=== PATIENT | female | born 1940 | race Caucasian/White ===

== ENCOUNTER → 2016-09-11 | Outpatient (CLI) | payer MEDICARE, BC ==
[~2016-09-11] MED LIST: REGADENOSON 0.4 MG/5 ML SYRINGE IV ONE
--- NOTE | 2016-09-11 10:27 | EST ---
DATE OF SERVICE: 09/11/2016 AGE: 75Y SEX: F HT: 5'7" WT: 180 lbs. Protocol Paras: Other: Lexiscan Cardiolite Stage: Dur. of Exercise: *Heart Rate Blood Pressure *Rest: 80 Rest: 156/90 * *Max. Achieved: 124 Maximum BP: 176/89 85% PMHR: 100% PMHR: *METS: INDICATIONS: Abnormal EKG, atrial fibrillation. MEDICATIONS: Metoprolol, warfarin. The test is being done to evaluate the cardiac status. Baseline EKG showed atrial fibrillation with controlled ventricular response. Blood pressure at rest is 156/90 with a pulse rate of 80. A standard dose of Lexiscan was infused. EKGs taken during and after the exercise did not reveal any changes to suggest ischemia. FINAL IMPRESSION: 1. Negative Lexiscan stress test. 2. Report on the nuclear images to be given by the radiologist.
--- NOTE | 2016-09-11 13:13 | NM ---
EXAMINATION TYPE: NM stress lexiscan cardiolite DATE OF EXAM: 09/11/2016 10:47 AM COMPARISON: NONE HISTORY: 75-year-old female septal transmural TECHNIQUE: After the intravenous administration of 10.5 mCi Tc 99m Sestamibi - Cardiolite resting SP ECT images acquired 45 minutes post injection. The patient received 0.4mg Lexiscan, 27.5 mCi Tc 99m Sestamibi - Stress images obtained [address] injection FINDINGS: Review of stress and rest SPECT images demonstrates prominent adjacent GI artifact. There is moderate -sized stress-induced perfusion defect along the mid to apical anterolateral wall and along the mid t o basal septal wall. Gated analysis shows an estimated left ventricular ejection fraction of 41 %. TID is calculated at 0.92, within normal limits. IMPRESSION: 1. Images show areas of reversibility along the mid to apical anterolateral wall and in the mid to ba andreina septal wall. Further clinical and EKG correlation recommended. 2. Diminished LVEF of 41%.
== END | disposition home or self-care (01) ==
LOC: RADNMMAIN 08:25
PROVIDERS: ATTEND Internal Medicine
DX: I21.29 ST elevation (STEMI) myocardial infarction involving other sites (principal)
CPT/HCPCS: 93017; 78452; A9500; J2785

== ENCOUNTER → 2016-11-18 | Outpatient (CLI) | payer MEDICARE, BC ==
[2016-11-18 11:49] LABS: INR 4.3 (<1.1); Prothrombin Time 42.2 sec (9.0-12.0)
[2016-11-18 11:57] LABS: CH 30.3; CHCM 32.7; HCT 38.5 % (34.0-46.0); HDW 2.72; HGB 12.9 gm/dL (11.4-16.0); MCH 31.2 pg (25.0-35.0); MCHC 33.5 g/dL (31.0-37.0); MCV 93.2 fL (80.0-100.0); Mean Platelet Volume 6.7; RBC 4.13 m/uL (3.80-5.40); RDW 12.4 % (11.5-15.5); WBC 7.2 k/uL (3.8-10.6)
[2016-11-18 12:13] LABS: Anion Gap 11 mmol/L; Blood Urea Nitrogen 20 mg/dL (7-17); Carbon Dioxide 30 mmol/L (22-30); Chloride 101 mmol/L (98-107); Non-African American GFR(MDRD) >60 (>60 ml/min/1.73 sqM); Potassium 3.9 mmol/L (3.5-5.1); Sodium 142 mmol/L (137-145)
== END | disposition home or self-care (01) ==
LOC: LABPAT 11:17
PROVIDERS: ATTEND Internal Medicine Interventional Cardiology
DX: Z01.812 Encounter for preprocedural laboratory examination (principal); I25.10 Atherosclerotic heart disease of native coronary artery without angina pectoris; I48.91 Unspecified atrial fibrillation; Z79.01 Long term (current) use of anticoagulants
CPT/HCPCS: 80051; 82565; 84520; 85027; 85610

== ENCOUNTER 2016-11-21 06:11 | Day surgery (SDC) | payer MEDICARE, BC ==
[2016-11-20 09:38] VITALS: BMI 28.1
[~2016-11-21 06:11] MED LIST changes: +ALPRAZolam 0.25 MG TAB PO PRN; +ALPRAZolam 0.5 MG TAB PO PRN; +ASPIRIN 325 MG TAB PO STA; +ATORVASTATIN 80 MG TAB PO STA; -REGADENOSON 0.4 MG/5 ML SYRINGE IV ONE; +SODIUM CHLORIDE 0.9% 1,000 ML in EMPTY BAG 1 BAG IV ONE
[2016-11-21 07:10] VITALS: TEMP 98.2
[2016-11-21 07:12] LABS: Glucose,Whole Blood 95 mg/dL (75-99)
[2016-11-21] MEDS ORDERED: LIDOCAINE 2% INJ 20 MG/ML (20 ML MDV) ONE (07:16)
[2016-11-21] MEDS ORDERED: VERAPAMIL 2.5 MG/ML 2 ML AMP ONE (07:17)
[2016-11-21] MEDS ORDERED: SODIUM CHLORIDE 0.9% 1,000 ML IV ONE (07:19)
[2016-11-21 07:31] LABS: INR 1.4 (<1.1); Prothrombin Time 13.5 sec (9.0-12.0)
[2016-11-21] MEDS ORDERED: HEPARIN SODIUM 1,000 UNIT/ML VIAL ONE (07:34)
[2016-11-21] MEDS ORDERED: diphenhydrAMINE 50 MG/ML 1 ML VIAL ONE (07:34)
[2016-11-21] MEDS ORDERED: fentaNYL (PF) 50 MCG/ML 2 ML AMP ONE (07:34)
[2016-11-21] MEDS ORDERED: fentaNYL (PF) 50 MCG/ML 2 ML AMP IV ONE (07:36)
[2016-11-21] MEDS ORDERED: diphenhydrAMINE 50 MG/ML 1 ML VIAL IVP ONE (07:37)
[2016-11-21] MEDS ORDERED: LIDOCAINE 2% INJ 20 MG/ML SQ ONE (07:40)
[2016-11-21] MEDS ORDERED: VERAPAMIL SYRINGE (5 MG/10 ML) INTRAARTER ONE (07:44)
[2016-11-21] MEDS ORDERED: IOHEXOL 350 MG/ML 100 ML BOTTLE INJ ONE (07:59)
[2016-11-21] MEDS ORDERED: RX INFO: IV CONTRAST WAS GIVEN 1 EACH MISC MISCELLANE PRN (08:15)
[2016-11-21] MEDS ORDERED: SODIUM CHLORIDE 0.9% 1,000 ML IV SCH (08:15)
--- NOTE | 2016-11-21 08:44 | CC ---
DATE OF SERVICE: Mrs. Moore is a 75-year-old female with known history of hypertension, hyperlipidemia and diabetes mellitus, history of atrial fibrillation who has been complaining of progressive symptoms of dyspnea on exertion. She underwent a myocardial perfusion imaging that showed evidence of inducible ischemia as well as an impairment in the left ventricle systolic function. In view of that, recommendation was made regarding cardiac catheterization. The procedure as well as risks and complications were discussed with the patient who is in full understanding and agreement. PROCEDURE: The patient was brought to the medical laboratory technologist in a fasting semi-sedated state after receiving fentanyl with Benadryl and after reaching conscious moderate sedated state. Using Xylocaine anesthesia and Seldinger technique, a 6 Faroese sheath was introduced in the right radial artery. Selective right and left coronary angiography was performed using 5 Faroese, 3-1/2 Bend right and left Federico catheters. Multiple views of the coronary arteries including hemiaxial views were obtained. Following that, a 5 Faroese tight pigtail catheter was introduced in the left ventricle, and a 30-degree GUTIERREZ view of the left ventricle was obtained. Following that, catheter and sheath were removed. Hemostasis was obtained with deployment of a TR band. There was no immediate complication. The patient was returned to the room in stable condition. Of note, the patient received 4500 units of intravenous heparin as well as intra-arterial verapamil. FINDINGS: LEFT MAIN: This is a large-size vessel bifurcating into the left circumflex and left anterior descending artery. Left main coronary artery is without any significant obstructive coronary artery disease. LEFT ANTERIOR DESCENDING ARTERY: This is a large-size vessel tapers down in the distal third giving rise to a large diagonal branch. The left anterior descending artery is calcified, has a 20% to 30% plaque in the mid segment. The rest of the vessel has no high-grade stenosis. LEFT CIRCUMFLEX: This is a nondominant vessel, large in caliber, giving rise to a large obtuse marginal branch, calcified proximally. The left circumflex has mild intimal disease without any evidence of high-grade stenosis. RIGHT CORONARY ARTERY: This is a large dominant vessel, bifurcating distally into PDA and posterolateral segment and branches. Calcified throughout its course. The right coronary artery and its branches have mild intimal disease throughout its course of 20%. LEFT VENTRICULOGRAM: Left ventriculogram was performed in 30-degree GUTIERREZ view and revealed a normal left ventricular size with mild global hypokinesis. The estimated ejection fraction was 50%. There was arrhythmia-induced mitral regurgitation. HEMODYNAMICS: There was no gradient across the aortic valve. The left ventricular end-diastolic pressure was 12 mmHg. CONCLUSION: 1. Mild triple vessel coronary artery disease. 2. Mildly impaired left ventricular systolic function. RECOMMENDATIONS: In view of finding anatomy, recommend to continue medical therapy with aggressive coronary risk modifications that have been initiated. Those findings and recommendations were discussed with the patient and her family who are in full understanding and agreement.
--- NOTE | 2016-11-21 08:47 | LTR ---
November 21, 2016 DIANA TRAMMELL MD RE: Brie Moore Dear Dr. Trammell: I had the opportunity to perform cardiac catheterization on Mrs. Moore at [facility] on the 21 of November and a full copy of the procedure note will be forwarded to you. In brief, she was found to have mild triple vessel coronary artery disease with a mildly impaired left ventricular systolic function. In view of that, I recommended to continue medical therapy with aggressive coronary risk modification initiated and thank you again for allowing me the opportunity to participate in her care. Please feel free to call for any questions. Sincerely yours, MIKE GAVIRIA MD
[2016-11-21] MEDS ORDERED: NON-FORMULARY DRUG (Vitamin B Complex [Vitamin B Complex] 1 EACH) PO SCH (09:00)
[2016-11-21] MEDS ORDERED: NON-FORMULARY DRUG (L.Acidoph,Paracasei, B.Lactis [Probiotic] 1 EACH) PO SCH (09:00)
[2016-11-21] MEDS ORDERED: CHOLECALCIFEROL 1,000 UNIT TAB PO SCH (09:00)
[2016-11-21 13:18] VITALS: BP 158/72
[2016-11-21 16:20] VITALS: PULSE 82; RESP 16
[2016-11-21] MEDS ORDERED: WARFARIN 5 MG TAB PO SCH (18:00)
[2016-11-21] MEDS ORDERED: BENAZEPRIL PO SCH (21:00)
[2016-11-21] MEDS ORDERED: AMLODIPINE BESYLATE PO SCH (21:00)
[2016-11-22] MEDS ORDERED: METOPROLOL SUCCINATE (ER) 50 MG TAB.ER.24H PO SCH (09:00)
[2016-11-22] MEDS ORDERED: ATORVASTATIN 20 MG TAB PO SCH (09:00)
[2016-11-22] MEDS ORDERED: WARFARIN 2.5 MG TAB PO SCH (18:00)
== END 2016-11-21 13:58 | disposition home or self-care (01) ==
LOC: CATHCVL 06:11
PROVIDERS: ATTEND Internal Medicine Interventional Cardiology
DX: I25.10 Atherosclerotic heart disease of native coronary artery without angina pectoris (principal); I10 Essential (primary) hypertension; E78.2 Mixed hyperlipidemia; E11.9 Type 2 diabetes mellitus without complications; I48.2 Chronic atrial fibrillation; Z79.01 Long term (current) use of anticoagulants; Z82.49 Family history of ischemic heart disease and other diseases of the circulatory system; Z88.0 Allergy status to penicillin; Z87.891 Personal history of nicotine dependence; Z79.84 Long term (current) use of oral hypoglycemic drugs; Z79.899 Other long term (current) drug therapy
CPT/HCPCS: 93458; 85610; 99152; 99153; C1894; C1769 ×2; J2001; J1200; Q9967; J3010; J1644

== ENCOUNTER 2017-04-04 10:09 | Inpatient (IN) | payer MEDICARE, BC ==
[2017-04-04] MEDS ORDERED: RX INFO: IV CONTRAST WAS GIVEN 1 EACH MISC MISCELLANE PRN (10:56)
--- NOTE | 2017-04-04 11:08 | ED ---
General Adult HPI - General Chief complaint: GI Bleed Stated complaint: Rectal Bleed 15 HOURS Time Seen by Provider: 04/04/17 10:35 Source: patient, family, RN notes reviewed Mode of arrival: ambulatory Limitations: no limitations - History of Present Illness Initial comments: 76-year-old female with history of atrial fibrillation currently on Coumadin presents with possibly 5 episodes of bright red blood per rectum. Patient also reports crampy lower abdominal pain which is bilateral. She is currently asymptomatic. Last bowel movement was attending him. This was approximately 2- 3 tablespoons with several small blood clots. She does have a history of reported inflammation in her rectum and cold. There is a family history: Cancer. She is up-to-date on her colonoscopies as far she knows, and there has been no known irregularities. Patient denies fever or chills. Denies upper abdominal pain. Denies chest pain or shortness of breath. She is reporting some lightheadedness, worse with standing. Patient is otherwise is symptomatically at this time. - Related Data Home Medications Medication Instructions Recorded Confirmed Cholecalciferol [Vitamin D3] 1,000 unit PO DAILY 10/15/16 04/04/17 Metoprolol Succinate (ER) [Toprol 50 mg PO DAILY 10/15/16 04/04/17 Xl] Warfarin [Coumadin] 2.5 mg PO SUWESA 10/15/16 04/04/17 Warfarin [Coumadin] 5 mg PO MOTUTHFR 10/15/16 04/04/17 amLODIPine BESYLATE/BENAZEPRIL 1 cap PO HS 10/15/16 04/04/17 [Lotrel 10-40 mg Capsule] sitaGLIPtin PHOS/metFORMIN HCL 1 tab PO DAILY 10/15/16 04/04/17 [Janumet 50-500 mg Tablet] L.acidoph,Paracasei, B.lactis 1 cap PO DAILY 11/20/16 04/04/17 [Probiotic] Vitamin B Complex 1 cap PO DAILY 11/20/16 04/04/17 Allergies Allergy/AdvReac Type Severity Reaction Status Date / Time Penicillins Allergy Swelling Verified 04/04/17 12:10 Review of Systems ROS Statement: Those systems with pertinent positive or pertinent negative responses have been documented in the HPI. ROS Other: All systems not noted in ROS Statement are negative. Past Medical History Past Medical History: Cancer, Diabetes Mellitus, Hypertension, Osteoarthritis ( OA) Additional Past Medical History / Comment(s): Pt states that she has been told that she has a-fib but recently told she does not have a-fib. 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 Past Anesthesia/Blood Transfusion Reactions: No Reported Reaction, Motion Sickness Past Psychological History: Depression Smoking Status: Former smoker - Past Family History Brother(s) Family Medical History: Deep Vein Thrombosis (DVT) Mother Family Medical History: Cancer General Exam Limitations: no limitations General appearance: alert, in no apparent distress Head exam: Present: atraumatic, normocephalic Eye exam: Present: normal appearance, PERRL ENT exam: Present: normal exam, mucous membranes moist Neck exam: Present: normal inspection. Absent: tenderness, meningismus Respiratory exam: Present: normal lung sounds bilaterally. Absent: respiratory distress Cardiovascular Exam: Present: regular rate, irregular rhythm GI/Abdominal exam: Present: soft. Absent: distended, tenderness, guarding Rectal exam: Present: normal rectal tone, heme (+) stool Extremities exam: Present: normal inspection, normal capillary refill. Absent: pedal edema Back exam: Present: normal inspection, full ROM Neurological exam: Present: alert, oriented X3, CN II-XII intact. Absent: motor sensory deficit Psychiatric exam: Present: normal affect, normal mood Skin exam: Present: warm, dry. Absent: cyanosis, diaphoretic, pallor Course Vital Signs 04/04/17 04/04/17 04/04/17 10:18 10:32 12:20 Temperature 98.5 F 96.8 F L Pulse Rate 80 76 61 Respiratory 17 20 18 Rate Blood Pressure 124/66 127/80 133/74 O2 Sat by Pulse 96 96 96 Oximetry 04/04/17 13:14 Temperature Pulse Rate 68 Respiratory 18 Rate Blood Pressure 146/81 O2 Sat by Pulse 97 Oximetry EKG Findings - EKG Comments: EKG Findings:: EKG shows atrial fibrillation with ventricular rate of 58, QRS duration 90, QTC 441, this may be atrial flutter, no signs of ischemia Medical Decision Making - Medical Decision Making 76-year-old female presenting with crampy lower abdominal pain and 5 episodes of bright red blood per rectum with some small clots. Patient does have a history of colitis in the past. She is on Coumadin for atrial fibrillation. Vital signs are stable, patient is overall well-appearing. Hemoglobin is 13.6, INR is 3.0. All the labs are unremarkable. CT is obtained and does show colitis of the descending colon, there is also diverticulosis. No signs of diverticulitis. Case discussed with gastroenterology, INR will be reversed with vitamin K. Patient will be admitted to internal medicine. Diagnosis: GI bleed, likely lower, on anticoagulation - Lab Data Result diagrams: 04/04/17 11:16 04/04/17 11:16 Lab Results 04/04/17 04/04/17 04/04/17 Range/Units 11:16 11:16 11:16 WBC 12.4 H (3.8-10.6) k/uL RBC 4.27 (3.80-5.40) m/uL Hgb 13.6 (11.4-16.0) gm/dL Hct 38.2 (34.0-46.0) % MCV 89.5 (80.0-100.0) fL MCH 31.8 (25.0-35.0) pg MCHC 35.5 (31.0-37.0) g/dL RDW 12.4 (11.5-15.5) % Plt Count 241 (150-450) k/uL Neutrophils % 78 % Lymphocytes % 13 % Monocytes % 6 % Eosinophils % 1 % Basophils % 0 % Neutrophils # 9.6 H (1.3-7.7) k/uL Lymphocytes # 1.7 (1.0-4.8) k/uL Monocytes # 0.8 (0-1.0) k/uL Eosinophils # 0.1 (0-0.7) k/uL Basophils # 0.0 (0-0.2) k/uL PT (9.0-12.0) sec INR (<1.2) APTT (22.0-30.0) sec Sodium 139 (137-145) mmol/L Potassium 3.8 (3.5-5.1) mmol/L Chloride 104 (98-107) mmol/L Carbon Dioxide 27 (22-30) mmol/L Anion Gap 8 mmol/L BUN 13 (7-17) mg/dL Creatinine 0.71 (0.52-1.04) mg/dL Est GFR (MDRD) Af Amer >60 (>60 ml/min/1.73 sqM) Est GFR (MDRD) Non-Af >60 (>60 ml/min/1.73 sqM) Glucose 95 (74-99) mg/dL Plasma Lactic Acid Abraham (0.7-2.0) mmol/L Calcium 9.3 (8.4-10.2) mg/dL Magnesium 1.3 L (1.6-2.3) mg/dL Total Bilirubin 1.4 H (0.2-1.3) mg/dL AST 29 (14-36) U/L ALT 35 (9-52) U/L Alkaline Phosphatase 52 (38-126) U/L Total Creatine Kinase 84 (30-135) U/L CK-MB (CK-2) 0.6 (0.0-2.4) ng/mL CK-MB (CK-2) Rel Index 0.7 Total Protein 7.3 (6.3-8.2) g/dL Albumin 3.9 (3.5-5.0) g/dL Urine Color Urine Appearance (Clear) Urine pH (5.0-8.0) Ur Specific [place] (1.001-1.035) Urine Protein (Negative) Urine Glucose (UA) (Negative) Urine Ketones (Negative) Urine Blood (Negative) Urine Nitrite (Negative) Urine Bilirubin (Negative) Urine Urobilinogen (<2.0) mg/dL Ur Leukocyte Esterase (Negative) Blood Type Blood Type Confirm Blood Type Recheck Antibody Screen Spec Expiration Date 04/04/17 04/04/17 04/04/17 Range/Units 11:16 11:16 11:16 WBC (3.8-10.6) k/uL RBC (3.80-5.40) m/uL Hgb (11.4-16.0) gm/dL Hct (34.0-46.0) % MCV (80.0-100.0) fL MCH (25.0-35.0) pg MCHC (31.0-37.0) g/dL RDW (11.5-15.5) % Plt Count (150-450) k/uL Neutrophils % % Lymphocytes % % Monocytes % % Eosinophils % % Basophils % % Neutrophils # (1.3-7.7) k/uL Lymphocytes # (1.0-4.8) k/uL Monocytes # (0-1.0) k/uL Eosinophils # (0-0.7) k/uL Basophils # (0-0.2) k/uL PT 28.8 H (9.0-12.0) sec INR 3.0 H (<1.2) APTT 37.0 H (22.0-30.0) sec Sodium (137-145) mmol/L Potassium (3.5-5.1) mmol/L Chloride (98-107) mmol/L Carbon Dioxide (22-30) mmol/L Anion Gap mmol/L BUN (7-17) mg/dL Creatinine (0.52-1.04) mg/dL Est GFR (MDRD) Af Amer (>60 ml/min/1.73 sqM) Est GFR (MDRD) Non-Af (>60 ml/min/1.73 sqM) Glucose (74-99) mg/dL Plasma Lactic Acid Abraham 0.9 (0.7-2.0) mmol/L Calcium (8.4-10.2) mg/dL Magnesium (1.6-2.3) mg/dL Total Bilirubin (0.2-1.3) mg/dL AST (14-36) U/L ALT (9-52) U/L Alkaline Phosphatase (38-126) U/L Total Creatine Kinase (30-135) U/L CK-MB (CK-2) (0.0-2.4) ng/mL CK-MB (CK-2) Rel Index Total Protein (6.3-8.2) g/dL Albumin (3.5-5.0) g/dL Urine Color Urine Appearance (Clear) Urine pH (5.0-8.0) Ur Specific [place] (1.001-1.035) Urine Protein (Negative) Urine Glucose (UA) (Negative) Urine Ketones (Negative) Urine Blood (Negative) Urine Nitrite (Negative) Urine Bilirubin (Negative) Urine Urobilinogen (<2.0) mg/dL Ur Leukocyte Esterase (Negative) Blood Type A Positive Blood Type Confirm Blood Type Recheck CABO Indicated Antibody Screen NEGATIVE Spec Expiration Date 04/07/2017 - 231504/04/17 04/04/17 Range/Units 12:37 13:05 WBC (3.8-10.6) k/uL RBC (3.80-5.40) m/uL Hgb (11.4-16.0) gm/dL Hct (34.0-46.0) % MCV (80.0-100.0) fL MCH (25.0-35.0) pg MCHC (31.0-37.0) g/dL RDW (11.5-15.5) % Plt Count (150-450) k/uL Neutrophils % % Lymphocytes % % Monocytes % % Eosinophils % % Basophils % % Neutrophils # (1.3-7.7) k/uL Lymphocytes # (1.0-4.8) k/uL Monocytes # (0-1.0) k/uL Eosinophils # (0-0.7) k/uL Basophils # (0-0.2) k/uL PT (9.0-12.0) sec INR (<1.2) APTT (22.0-30.0) sec Sodium (137-145) mmol/L Potassium (3.5-5.1) mmol/L Chloride (98-107) mmol/L Carbon Dioxide (22-30) mmol/L Anion Gap mmol/L BUN (7-17) mg/dL Creatinine (0.52-1.04) mg/dL Est GFR (MDRD) Af Amer (>60 ml/min/1.73 sqM) Est GFR (MDRD) Non-Af (>60 ml/min/1.73 sqM) Glucose (74-99) mg/dL Plasma Lactic Acid Abraham (0.7-2.0) mmol/L Calcium (8.4-10.2) mg/dL Magnesium (1.6-2.3) mg/dL Total Bilirubin (0.2-1.3) mg/dL AST (14-36) U/L ALT (9-52) U/L Alkaline Phosphatase (38-126) U/L Total Creatine Kinase (30-135) U/L CK-MB (CK-2) (0.0-2.4) ng/mL CK-MB (CK-2) Rel Index Total Protein (6.3-8.2) g/dL Albumin (3.5-5.0) g/dL Urine Color Light Yellow Urine Appearance Clear (Clear) Urine pH 7.0 (5.0-8.0) Ur Specific [place] 1.011 (1.001-1.035) Urine Protein Negative (Negative) Urine Glucose (UA) Negative (Negative) Urine Ketones Negative (Negative) Urine Blood Negative (Negative) Urine Nitrite Negative (Negative) Urine Bilirubin Negative (Negative) Urine Urobilinogen <2.0 (<2.0) mg/dL Ur Leukocyte Esterase Negative (Negative) Blood Type Blood Type Confirm A Positive Blood Type Recheck Antibody Screen Spec Expiration Date Disposition Clinical Impression: Hematochezia Disposition: ADMITTED IP TO THIS [facility] Condition: Stable Referrals: Jean Paul Gonzalez MD [Primary Care Provider] - 1-2 days Decision to Admit Reason: Admit from EC Decision Date: 04/04/17 Decision Time: 13:30
[2017-04-04 11:38] LABS: Basophils % (A) 0 %; CHCM 34.8; Eosinophils # (A) 0.1 k/uL (0-0.7); Eosinophils % (A) 1 %; HCT 38.2 % (34.0-46.0); HDW 2.79; HGB 13.6 gm/dL (11.4-16.0); Luc # (Auto) 0.18; Luc % (Auto) 1; Lymphocytes # (A) 1.7 k/uL (1.0-4.8); Lymphocytes % (A) 13 %; MCH 31.8 pg (25.0-35.0); MCHC 35.5 g/dL (31.0-37.0); MCV 89.5 fL (80.0-100.0); Mean Platelet Volume 7.3; Monocytes # (A) 0.8 k/uL (0-1.0); Monocytes % (A) 6 %; Neutrophils # (A) 9.6 k/uL (1.3-7.7); Neutrophils % (A) 78 %; RBC 4.27 m/uL (3.80-5.40); RDW 12.4 % (11.5-15.5); WBC 12.4 k/uL (3.8-10.6)
[2017-04-04 11:48] LABS: Anion Gap 8 mmol/L; Calcium 9.3 mg/dL (8.4-10.2); Carbon Dioxide 27 mmol/L (22-30); Chloride 104 mmol/L (98-107); Glucose 95 mg/dL (74-99); Non-African American GFR(MDRD) >60 (>60 ml/min/1.73 sqM); Prothrombin Time 28.8 sec (9.0-12.0); Sodium 139 mmol/L (137-145); Total Bilirubin 1.4 mg/dL (0.2-1.3); Total Protein 7.3 g/dL (6.3-8.2)
[2017-04-04 11:50] LABS: Potassium 3.8 mmol/L (3.5-5.1)
[2017-04-04 11:51] LABS: ALT 35 U/L (9-52); AST 29 U/L (14-36); Alkaline Phosphatase 52 U/L (38-126); Blood Urea Nitrogen 13 mg/dL (7-17); Magnesium 1.3 mg/dL (1.6-2.3)
[2017-04-04 12:09] LABS: Creatine Kinase MB 0.6 ng/mL (0.0-2.4)
[2017-04-04] MEDS ORDERED: MAGNESIUM SULFATE-D5W PMX 1 GM in DEXTROSE/WATER 1 100ML.BAG IVPB ONE (12:25)
[2017-04-04 13:23] LABS: Appearance,Urine Clear (Clear); Bilirubin,Urine Negative (Negative); Glucose,Urine (UA) Negative (Negative); Ketones,Urine Negative (Negative); Leukocyte Esterase,Urine Negative (Negative); Nitrite,Urine Negative (Negative); Protein,Urine Negative (Negative); Specific Gravity,Urine 1.011 (1.001-1.035); UA Billing (MACRO vs. MICRO) CHEM; Urobilinogen,Urine <2.0 mg/dL (<2.0)
--- NOTE | 2017-04-04 13:40 | CT ---
EXAMINATION TYPE: CT abdomen pelvis w con DATE OF EXAM: 04/04/2017 COMPARISON: NONE INDICATION: Bright red rectal bleeding DLP: 752.90 mGycm, Automated exposure control for dose reduction was used. CONTRAST: 100 mL of Omnipaque 300. Study performed without Oral Contrast TECHNIQUE: Axial images were obtained from above the diaphragm to the pubic rami in the axial plane a t 5 mm thick sections. Reconstructed images are reviewed on the computer in the coronal plane. FINDINGS: Limited CT sections are obtained the lung bases. The lung bases are clear. CT ABDOMEN: Liver: There is a 0.8 cm hypodensity within the anterior superior right lobe liver likely is a cyst. Spleen: Normal Pancreas: Normal Adrenal glands: The adrenal glands are normal. Gallbladder: Normal Kidneys: No masses are evident. No hydronephrosis is present. No cysts are present. Delayed images were obtained through the kidneys, which remain unremarkable. Aorta: Vascular calcification is within the aorta. Inferior vena cava: Normal. CT PELVIS: There are inflammatory changes at the splenic flexure and proximal descending colon compatible with c olitis. This extends to the descending colon sigmoid colon junction. Study is performed without oral contrast limiting the evaluation. Diverticular changes are within the sigmoid colon without acute div erticulitis. Appendix: Normal as visualized. Urinary bladder: Normal. Genitourinary structures: Uterus is not identified. There is a large hypodense structure measuring 4. 9 x 7.6 cm in the left adnexal region measuring 9 Hounsfield units. This could be a large ovarian cys t. Osseous structures: No suspicious lytic or sclerotic lesions. Facet degenerative changes at sacroilia c joint degenerative changes are present. IMPRESSIONS: 1. Correlate for descending colon colitis. 2. Diverticulosis without acute diverticulitis. 3. Large left ovarian cyst. This should be followed with ultrasound to resolution.
[2017-04-04] MEDS ORDERED: PHYTONADIONE 5 MG in SODIUM CHLORIDE 0.9% 50 ML IVPB STA (14:04)
[2017-04-04] MEDS ORDERED: ONDANSETRON 4 MG/2 ML VIAL IVP PRN (14:05)
[2017-04-04] MEDS ORDERED: ACETAMINOPHEN TAB 325 MG TAB PO PRN (14:05)
[2017-04-04] MEDS ORDERED: NALOXONE 0.4 MG/ML 1 ML VIAL IV PRN (14:05)
[2017-04-04] MEDS ORDERED: SODIUM CHLORIDE 0.9% 1,000 ML IV SCH (14:15)
[2017-04-04] MEDS: PANTOPRAZOLE 40 MG/10 ML VIAL IV SCH ×2 (14:51→15:04)
[2017-04-04 16:16] VITALS: BMI 27.6
[2017-04-04 17:39] LABS: Basophils # (A) 0.1 k/uL (0-0.2); Basophils % (A) 0 %; CHCM 34.2; Eosinophils # (A) 0.1 k/uL (0-0.7); Eosinophils % (A) 1 %; HCT 43.4 % (34.0-46.0); HDW 2.64; HGB 14.4 gm/dL (11.4-16.0); Luc # (Auto) 0.18; Luc % (Auto) 2; Lymphocytes # (A) 2.1 k/uL (1.0-4.8); Lymphocytes % (A) 17 %; MCH 31.2 pg (25.0-35.0); MCHC 33.1 g/dL (31.0-37.0); MCV 94.2 fL (80.0-100.0); Mean Platelet Volume 7.6; Monocytes # (A) 0.8 k/uL (0-1.0); Monocytes % (A) 6 %; Neutrophils % (A) 74 %; RBC 4.61 m/uL (3.80-5.40); RDW 12.9 % (11.5-15.5); WBC 12.1 k/uL (3.8-10.6); WBC (Perox) 11.53
[2017-04-04 17:51] LABS: ALT 34 U/L (9-52); AST 26 U/L (14-36); Alkaline Phosphatase 61 U/L (38-126); Anion Gap 9 mmol/L; Blood Urea Nitrogen 10 mg/dL (7-17); Calcium 9.4 mg/dL (8.4-10.2); Carbon Dioxide 28 mmol/L (22-30); Chloride 104 mmol/L (98-107); Glucose 92 mg/dL (74-99); Non-African American GFR(MDRD) >60 (>60 ml/min/1.73 sqM); Sodium 141 mmol/L (137-145); Total Bilirubin 1.7 mg/dL (0.2-1.3); Total Protein 7.7 g/dL (6.3-8.2)
[2017-04-04 18:51] LABS: Bilirubin, Delta 0.5 mg/dL (0.0-0.2)
[2017-04-04] MEDS: POTASSIUM CHLORIDE ER 20 MEQ TAB.ER PO SCH ×3 (19:38→23:15)
[2017-04-04] MEDS ORDERED: diphenhydrAMINE 25 MG CAP PO PRN (19:39)
[2017-04-04] MEDS ORDERED: MD COMMUNICATION TO PHARMACY 1 EACH MISC PO PRN (20:00)
[2017-04-04] MEDS ORDERED: POTASSIUM CHLORIDE 20 MEQ, LIDOCAINE 2% INJ 20 MG in SODIUM CHLORIDE 0.9% 100 ML IVPB SCH (20:00)
[2017-04-04] MEDS ORDERED: Magnesium Replacement Protocol 1 EACH MISC MISCELLANE PRN (20:01)
[2017-04-04] MEDS ORDERED: Potassium Replacement Protocol 1 EACH MISC MISCELLANE PRN (20:02)
--- NOTE | 2017-04-04 20:19 | P.HPIM ---
History of Present Illness H&P Date: 04/04/17 Chief Complaint: bloody diarrhea This 76-year-old female patient presented with a chief complaint of bloody diarrhea. bPatient state that she had not had any recent bowel habit changes in days prior. Normal pattern is formed brown stool every one to two days. Patient states that yesterday afternoon she began to have firm stool, followed by mushy stool that became clear liquid by 6 pm. Beginning at 7 pm she began to have bright red blood per rectum. She denies it being mixed with any stool. She indicates by this morning the blood was clotted and dark. Patient indicates that every 20 minutes or so she has less than a minute of 8/ 10 pain that subsides on its own in her bilateral lower quadrants across her pelvis. Pain subsides back to resolution after that time. This stopped from 2 -6 pm and then restarted. No reported new dietary changes. Not exposed to new foods. Lives with sister who is not ill. Patient states that she had a similar episode 12-15 years ago which she felt had something to do with ingredients in a malt from [employer] and another episode subsequently with the same exposure. She states she did have a colonoscopy at that time and she had significant inflammation but was told it was not ulcerative colitis. No nausea or vomiting. No fever or chills. No appetite loss. No upper abdominal pain. No history of gastric ulcers. No hematemesis. Review of Systems General: Patient denies fever, chills,nausea, or vomiting. HEENT: No visual changes. No eye pain. No nasal symptoms. No dysphagia.No odynophagia. No ENT pain. Remote history of thymoma. Cardiac: No chest pain. No palpitations. Pulmonary: No dyspnea. GI: Left lower quadrant and right lower quadrant abdominal pain in a band over the upper pelvis. Intense every 15 -20 minutes at 8/10, subsides in a minute or so each time. Multiple loose bowel movements. Please see HPI. No constipation prior to the onset of the diarrhea. No melena. Positive hematochezia. See HPI. Some reflux at times. Some solid food dysphagia with processed white bread over the last two years. OK with other foods including chicken, etc. : No dysuria.No hematuria. No hesitancy. No urgency. No renal lithiasis history. Musculoskeletal: No musculoskeletal pain. Orthopedic: No fracture history. Integumentary: Denies rash. Denies pruritis. Neurologic: Denies any lateralizing weakness. Denies numbness. Denies tingling. No seizure activity. Denies TIA or CVA. Endocrine: Positive diabetes. No thyroid disorder history. Heme/Onc: Denies anemia. Denies cancer. Denies adenopathy. Allergic/Immunologic: Allergic to PCN, causing arm to swell after injection at age 11. tolerates cephalosporins. No seasonal allergy or other history given. Past Medical History Past Medical History: Cancer, Diabetes Mellitus, Hypertension, Osteoarthritis ( OA) Additional Past Medical History / Comment(s): Pt states that she has been told that she has a-fib but recently told she does not have a-fib. 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 Past Anesthesia/Blood Transfusion Reactions: No Reported Reaction, Motion Sickness Past Psychological History: Depression Smoking Status: Former smoker Past Alcohol Use History: Occasional Past Drug Use History: None Reported - Past Family History Brother(s) Family Medical History: Deep Vein Thrombosis (DVT) Mother Family Medical History: Cancer Medications and Allergies Home Medications Medication Instructions Recorded Confirmed Type Cholecalciferol [Vitamin D3] 1,000 unit PO DAILY 10/15/16 04/04/17 History Metoprolol Succinate (ER) [Toprol 50 mg PO DAILY 10/15/16 04/04/17 History Xl] Warfarin [Coumadin] 2.5 mg PO SUWESA 10/15/16 04/04/17 History Warfarin [Coumadin] 5 mg PO MOTUTHFR 10/15/16 04/04/17 History amLODIPine BESYLATE/BENAZEPRIL 1 cap PO HS 10/15/16 04/04/17 History [Lotrel 10-40 mg Capsule] sitaGLIPtin PHOS/metFORMIN HCL 1 tab PO DAILY 10/15/16 04/04/17 History [Janumet 50-500 mg Tablet] L.acidoph,Paracasei, B.lactis 1 cap PO DAILY 11/20/16 04/04/17 History [Probiotic] Vitamin B Complex 1 cap PO DAILY 11/20/16 04/04/17 History Acetaminophen/Diphenhydramine 1 tab PO HS PRN 04/04/17 04/04/17 History [Tylenol PM 500-25mg] Allergies Allergy/AdvReac Type Severity Reaction Status Date / Time Penicillins Allergy Swelling Verified 04/04/17 12:10 Physical Exam Osteopathic Statement: *. No significant issues noted on an osteopathic structural exam other than those noted in the History and Physical/Consult. Vitals: Vital Signs Temp Pulse Pulse Resp BP BP Pulse Ox 04/04/17 16:38 98.1 F 60 18 140/70 98 04/04/17 14:56 66 18 152/71 96 04/04/17 14:32 98.5 F 58 L 18 124/81 95 04/04/17 13:14 68 18 146/81 97 04/04/17 12:20 61 18 133/74 96 04/04/17 10:32 96.8 F L 76 20 127/80 96 04/04/17 10:18 98.5 F 80 17 124/66 96 Intake and Output 04/04/17 04/04/17 04/04/17 06:59 14:59 22:59 Other: Weight 82.554 kg Patient Weight 04/05/17 06:59 Weight 82.554 kg General: Patient awake alert and oriented x 3. No acute distress. HEENT: Sclerae are clear. Pupils equal, round and reactive to light bilaterally. No cervical adenopathy. No pharyngeal erythema or exudate. No thyromegaly. Nocarotid bruits. Lymphatic: No anterior cervical adenopathy. Chest: Heart irregular in rate and rhythm, slightly bradycardic positive S1 and S2. No S3. No S4. No clicks, rubs or murmurs. Scar left posterior chest wall from posterior lateral approach to thymoma surgical attempt. Lungs: Clear to auscultation bilaterally. No wheezes rales or rhonchi. Respirations even and nonlabored. Abdomen/GI: Bowel sounds present in all 4 quadrants. Bowel sounds hyperactive. Moves evenly with respiration. Tender over left mid abdomen and left lower quadrant to palpation. No mass. No hepatomegaly or splenomegaly. No bruits. On external rectal exam patient had a few drops of fresh blood and hemorrhoids which are not externally inflamed. Internal rectal exam performed by ER physician reported heme positive and do not wish to further exacerbate bleeding. Patient indicates that rectal exam itself was not tender, pain further interior. Musculoskeletal/ Extremities: No tenderness on muscular exam. No ecchymosis. Vascular: Radial pulses equal. 2/4. DP pulses 2/4. Skin: No rash. Neurologic: Awake, alert and oriented times 3. No lateralizing deficits noted on gross inspection. Ortho: no acute joint swelling or tenderness. Psychiatric: Despite severe life stressors with multiple losses in recent years and loss of her brother in the last week, patient in good spirits with a positive attitude. Results CBC & Chem 7: 04/05/17 04:53 04/05/17 11:35 Labs: Abnormal Lab Results - Last 24 Hours (Table) 04/04/17 04/04/17 04/04/17 Range/Units 11:16 11:16 11:16 WBC 12.4 H (3.8-10.6) k/uL Neutrophils # 9.6 H (1.3-7.7) k/uL PT 28.8 H (9.0-12.0) sec INR 3.0 H (<1.2) APTT 37.0 H (22.0-30.0) sec Potassium (3.5-5.1) mmol/L Magnesium 1.3 L (1.6-2.3) mg/dL Total Bilirubin 1.4 H (0.2-1.3) mg/dL Unconjugated Bilirubin (0.0-1.1) mg/dL Delta Bilirubin (0.0-0.2) mg/dL 04/04/17 04/04/17 Range/Units 17:20 17:20 WBC 12.1 H (3.8-10.6) k/uL Neutrophils # 9.0 H (1.3-7.7) k/uL PT (9.0-12.0) sec INR (<1.2) APTT (22.0-30.0) sec Potassium 3.0 L* (3.5-5.1) mmol/L Magnesium (1.6-2.3) mg/dL Total Bilirubin 1.7 H (0.2-1.3) mg/dL Unconjugated Bilirubin 1.2 H (0.0-1.1) mg/dL Delta Bilirubin 0.5 H (0.0-0.2) mg/dL Thrombosis Risk Factor Assmnt - DVT/VTE Prophylaxis DVT/VTE Prophylaxis: Mechanical Prophylaxis ordered - Choose All That Apply Each Risk Factor Represents 3 Points: Age 75 years or older Thrombosis Risk Factor Assessment Total Risk Factor Score: 3 Thrombosis Risk Factor Assessment Level: Moderate Risk Assessment and Plan (1) Colitis Narrative/Plan: Infectious versus ischemic versus other Status: Acute (2) Hematochezia Narrative/Plan: Secondary to #1. Exacerbated by coagulopathy from Coumadin therapy Status: Acute (3) Atrial fibrillation with slow ventricular response Narrative/Plan: Chronic Status: Chronic (4) Hypertension Narrative/Plan: Chronic Status: Chronic (5) Thymoma, malignant Narrative/Plan: By history in the past diagnosed 1990 Status: Resolved (6) History of tonsillectomy Status: Resolved (7) H/O hysterectomy with oophorectomy Narrative/Plan: Unilateral nephrectomy, prior tube and ovary had ruptured from tubal . Status: Resolved (8) Hypokalemia Status: Acute (9) Hypomagnesemia Status: Acute (10) Hyperbilirubinemia Narrative/Plan: Mild Status: Acute Plan: 1. GI has been consulted and has placed the patient on clear liquids. Await GI evaluation. 2. Antibiotics including Kefzol and Flagyl pending further workup with colitis and with cyst being called in the pelvis as well but with patient history of absence of the ovaries feel it is less likely to be an ovarian cyst and as not certain that it couldn't be related to the colitis process with possibly an abscess will treat as same pending further workup. Patient's penicillin ALLERGY noted but she states she has taken Keflex in the past without difficulty. 3. Await direct bilirubin. 4. Magnesium replaced in the ER. Will redraw. Will place patient on magnesium protocol in case low again on redraw overnight. 5. Potassium redraw along with repeat CBC at 2300, spoke with nursing may move this draw by an hour to accommodate the end of the potassium piggybacks. 6. Potassium added to IV fluids and will follow potassium level. 7. Appropriate home medications for hypertension restarted including patient's beta stefan and ADITI inhibitor and calcium channel stefan. 8. Will hold metformin with patient's acute state because of risk of acidosis. Will reevaluate during hospitalization. 9. Patient already on a proton pump inhibitor from ER and ER consultation with Dr. Ros Franco. 10. Patient requesting Tylenol PM. We do not carry this product but have ordered 25 of Benadryl at bedtime per patient request. Patient states she has been on this for years, often gets up in the night on this medication and has not had any problems. Educated patient regarding fall risk. She still would like to take the Benadryl. 11. FULL CODE STATUS 12. DVT prophylaxis with SCDs; patient also ambulating to the bathroom.
[2017-04-04] MEDS: amLODIPine 10 MG TAB PO SCH (20:40)
[2017-04-04] MEDS: LISINOPRIL 20 MG TAB PO SCH (20:40)
[2017-04-04] MEDS: ceFAZolin 2 GM in SODIUM CHLORIDE 0.9% 100 ML IVPB SCH (21:25)
[2017-04-04 22:54] LABS: HCT 38.3 % (34.0-46.0); HDW 2.63; HGB 12.3 gm/dL (11.4-16.0); MCH 30.4 pg (25.0-35.0); MCHC 32.1 g/dL (31.0-37.0); MCV 94.4 fL (80.0-100.0); Mean Platelet Volume 7.7; RBC 4.06 m/uL (3.80-5.40); RDW 12.8 % (11.5-15.5); WBC 14.5 k/uL (3.8-10.6)
[2017-04-04] MEDS: metroNIDAZOLE-NS PMX 500 MG in SALINE 1 100ML.BAG IVPB SCH (23:14)
[2017-04-04 23:15] LABS: Magnesium 1.5 mg/dL (1.6-2.3); Potassium 3.1 mmol/L (3.5-5.1)
[2017-04-04] MEDS: MELATONIN 5 MG TABLET PO SCH (23:15)
[2017-04-05] MEDS ORDERED: SODIUM CHLORIDE 0.9% 1,000 ML with POTASSIUM CHLORIDE 20 MEQ IV SCH ×2 (00:15)
[2017-04-05] MEDS: MAGNESIUM SULFATE-D5W PMX 1 GM in DEXTROSE/WATER 1 100ML.BAG IVPB SCH ×2 (01:20→03:09)
[2017-04-05] MEDS: 0.9% NACL WITH KCL 20 MEQ/L 1,000 ML IV SCH ×2 (01:20→20:35)
[2017-04-05 05:07] LABS: Basophils # (A) 0.1 k/uL (0-0.2); Basophils % (A) 0 %; CH 32.1; CHCM 34.4; Eosinophils # (A) 0.1 k/uL (0-0.7); Eosinophils % (A) 1 %; HCT 36.6 % (34.0-46.0); HDW 2.65; HGB 12.2 gm/dL (11.4-16.0); Luc # (Auto) 0.21; Luc % (Auto) 2; Lymphocytes # (A) 2.1 k/uL (1.0-4.8); Lymphocytes % (A) 18 %; MCH 31.2 pg (25.0-35.0); MCHC 33.4 g/dL (31.0-37.0); MCV 93.5 fL (80.0-100.0); Mean Platelet Volume 7.9; Monocytes # (A) 0.7 k/uL (0-1.0); Monocytes % (A) 6 %; Neutrophils # (A) 8.7 k/uL (1.3-7.7); Neutrophils % (A) 73 %; RBC 3.92 m/uL (3.80-5.40); RDW 13.1 % (11.5-15.5); WBC 11.9 k/uL (3.8-10.6); WBC (Perox) 12.87
[2017-04-05 05:14] LABS: INR 1.4 (<1.2); Partial Thromboplastin Time 28.5 sec (22.0-30.0)
[2017-04-05 05:21] LABS: ALT 30 U/L (9-52); AST 23 U/L (14-36); Alkaline Phosphatase 55 U/L (38-126); Anion Gap 8 mmol/L; Blood Urea Nitrogen 8 mg/dL (7-17); Calcium 8.8 mg/dL (8.4-10.2); Carbon Dioxide 25 mmol/L (22-30); Chloride 106 mmol/L (98-107); Glucose 99 mg/dL (74-99); Magnesium 2.1 mg/dL (1.6-2.3); Non-African American GFR(MDRD) >60 (>60 ml/min/1.73 sqM); Potassium 3.2 mmol/L (3.5-5.1); Sodium 139 mmol/L (137-145); Total Bilirubin 1.5 mg/dL (0.2-1.3); Total Protein 6.3 g/dL (6.3-8.2)
[2017-04-05] MEDS: metroNIDAZOLE-NS PMX 500 MG in SALINE 1 100ML.BAG IVPB SCH ×3 (05:28→20:35)
[2017-04-05 06:02] LABS: Glucose,Whole Blood 102 mg/dL (75-99)
[2017-04-05] MEDS: ceFAZolin 2 GM in SODIUM CHLORIDE 0.9% 100 ML IVPB SCH ×3 (06:36→21:33)
[2017-04-05] MEDS: METOPROLOL SUCCINATE (ER) 50 MG TAB.ER.24H PO SCH (08:20)
[2017-04-05] MEDS: CHOLECALCIFEROL 1,000 UNIT TAB PO SCH (08:20)
[2017-04-05] MEDS: PANTOPRAZOLE 40 MG/10 ML VIAL IV SCH (08:20)
[2017-04-05] MEDS: LINAGLIPTIN 5 MG TABLET PO SCH (08:20)
[2017-04-05] MEDS: POTASSIUM CHLORIDE ER 20 MEQ TAB.ER PO SCH ×2 (08:20→09:38)
[2017-04-05] MEDS: B COMPLEX-VIT C-VIT E-ZINC 1 EACH TAB PO SCH (08:20)
[2017-04-05] MEDS: LACTOBACILLUS ACIDOPH & BULGAR 1 EACH PACKET PO SCH (08:20)
[2017-04-05 11:47] LABS: Glucose,Whole Blood 98 mg/dL (75-99)
[2017-04-05 12:04] LABS: Anion Gap 7 mmol/L; Blood Urea Nitrogen 9 mg/dL (7-17); Calcium 8.8 mg/dL (8.4-10.2); Carbon Dioxide 26 mmol/L (22-30); Chloride 106 mmol/L (98-107); Glucose 87 mg/dL (74-99); Non-African American GFR(MDRD) >60 (>60 ml/min/1.73 sqM); Potassium 3.9 mmol/L (3.5-5.1); Sodium 139 mmol/L (137-145)
[2017-04-05] MEDS ORDERED: PHYTONADIONE ORAL 5 MG/5 ML ORAL.SYRG PO STA (15:02)
--- NOTE | 2017-04-05 15:25 | CONS ---
DATE OF SERVICE: 04/05/2017 REQUESTING PHYSICIAN: Dr. Gonzalez. REASON FOR CONSULTATION: Dr. Gonzalez. REASON FOR CONSULTATION: Abdominal pain and lower GI bleeding. HISTORY OF PRESENT ILLNESS: The patient is a 76-year-old pleasant white female who came into the emergency room complaining of lower abdominal pain since Thursday evening. She started having severe cramping in the lower abdominal area , most in the left lower quadrant area subsequently followed by some diarrhea and then she had multiple episodes of bright colored blood per rectum. She had at least 4 or 5 of these episodes all through Thursday night. Came to the emergency room yesterday and subsequently admitted to the hospital for further evaluation. She did have a CT of the abdomen and pelvis done in the emergency room that showed thickening of the descending colon consistent with colitis. Her last bowel movement was yesterday afternoon around noon and this morning at 7:00 she had another small bowel movement with a small amount of blood in the stool. The abdominal pain has significantly improved. She denies any nausea or vomiting. She reports not fever, chills or night sweats. Never had similar symptoms in the past. Her last colonoscopy done by Dr. Perkins was approximately 4 or 5 years ago and according to the patient, had colon polyps. She denies any recent travel history. No recent antibiotic use. PAST MEDICAL HISTORY: Significant for hypertension, hypercholesterolemia, A. fib on Coumadin. MEDICATIONS AT H OME: Vitamin D3, Toprol, Coumadin, benezapril, Janumet, probiotic and vitamin B complex. ALLERGIES: None. SOCIAL HISTORY: No smoking or alcohol use. PAST SURGICAL HISTORY: Tonsillectomy, hysterectomy, colonoscopy 4 or 5 years ago. FAMILY HISTORY: Brother had DVT and mother had some kind of cancer. PHYSICAL EXAMINATION: She appears comfortable, no apparent distress. VITAL SIGNS: Stable. Blood pressure is ( )/71, pulse rate 75, temperature 99. HEENT: Unremarkable. Mucosa pink. Sclerae anicteric. Oral cavity - no lesions. No JVD or lymph node enlargement. CHEST: Clear to auscultation. HEART: Regular rate and rhythm. ABDOMEN: Soft. Bowel sounds are positive. Mild tenderness in the left lower quadrant area. EXTREMITIES: No pedal edema. SKIN: No rashes. NEURO: Alert and oriented x3. No focal deficits. LABS: At the time of admission to the hospital the WBC was 12.1, hemoglobin 14.4, platelets normal. Today, WBC 11.9, hemoglobin 12.2 and platelets are normal. PT and INR are 14/1.4. INR yesterday was 3. Basic metabolic panel is within normal limits. IMPRESSION: This is a lady who presented with acute onset of lower abdominal pain followed by bloody diarrhea in the last 24 hours duration. She had several episodes of bright red blood per rectum with small clots. A CAT scan showed left-sided colitis. Her clinical picture is very consistent with ischemic colitis but possibility of infectious colitis cannot be excluded. The patient has been empirically started on antibiotics with Flagyl and cefazolin and clinically her symptoms are clinically improved. RECOMMENDATIONS: 1. Continue with clear liquid diet. 2. Repeat CBC in the morning. 3. Hold Coumadin. 4. If her bleeding completely stops she can be discharged home tomorrow and the plan is to perform an outpatient colonoscopy in 2-3 weeks. The plan was discussed with the patient, she is agreeable to it. Thank you for this consultation. MANDO
[2017-04-05 15:31] LABS: CHCM 33.9; HCT 40.3 % (34.0-46.0); HDW 2.65; HGB 13.5 gm/dL (11.4-16.0); MCH 31.7 pg (25.0-35.0); MCHC 33.4 g/dL (31.0-37.0); MCV 94.7 fL (80.0-100.0); Mean Platelet Volume 7.7; RBC 4.25 m/uL (3.80-5.40)
[2017-04-05 15:41] LABS: Magnesium 1.8 mg/dL (1.6-2.3); Potassium 3.8 mmol/L (3.5-5.1)
[2017-04-05 16:29] LABS: Glucose,Whole Blood 100 mg/dL (75-99)
--- NOTE | 2017-04-05 17:36 | P.PN ---
Subjective Principal diagnosis: GI bleed This 76-year-old female patient presented with a chief complaint of bloody diarrhea. See H&P. Patient states she had a an episode of formed stool today along with blood. She states she felt a little bit better is if this was part of what was causing some of her pain. However she still does have pain with palpation today. She states however it is not as acutely painful as it was prior to passing this bowel movement. She states it was previously painful even to light touch of the abdomen. Patient states she's had 2 other episodes of passing a small amount of clots. No nausea or vomiting. No fever or chills. No appetite loss. No upper abdominal pain. No history of gastric ulcers. No hematemesis. Objective - Vital Signs Vital signs: Vital Signs Temp 98.8 F 04/05/17 08:00 Pulse 82 04/05/17 11:08 Resp 16 04/05/17 11:08 BP 132/69 04/05/17 08:00 Pulse Ox 96 04/05/17 08:00 Intake & Output 04/04/17 04/05/17 04/05/17 18:59 06:59 18:59 Intake Total 910 Output Total 250 Balance 660 Weight 82.554 kg 83.6 kg Intake: Intake, IV Titration 350 Amount Sodium Chloride 0.9% 1, 150 000 ml @ 75 mls/hr IV . [id number] AMARI with Potassium Chloride 20 meq Rx#:[id number] ceFAZolin 2 gm In Sodium 100 Chloride 0.9% 100 ml @ 100 mls/hr IVPB Q8H AMARI Rx#:[id number] metroNIDAZOLE-NS PMX 500 100 mg In Saline 1 100ml.bag @ 100 mls/hr IVPB Q8H AMARI Rx#:[id number] Oral 560 Output: Urine 250 Other: Voiding Method Toilet Toilet # Voids 1 1 - Exam General: Patient awake alert and oriented x 3. No acute distress. HEENT: Sclerae are clear. Pupils equal, round and reactive to light bilaterally. No cervical adenopathy. No pharyngeal erythema or exudate. No thyromegaly. Lymphatic: No anterior cervical adenopathy. Chest: Heart regular rhythm, bradycardic in 60s on exam, positive S1 and S2. No S3. No S4. No clicks, rubs or murmurs. Lungs: Clear to auscultation bilaterally. No wheezes rales or rhonchi. Respirations even and nonlabored. Abdomen/GI: Bowel sounds present in all 4 quadrants. Bowel sounds hypoactive but present. Still significant tenderness over the left abdomen with fairly light and deep palpation from splenic region to pelvis. Some tenderness to deep palpation over pelvis on right as well. No mass palpated. No hepatomegaly or splenomegaly. No bruits. Musculoskeletal/ Extremities: No tenderness on muscular exam. No ecchymosis. No edema. Vascular: Radial pulses equal. 2/4. Feet warm. Skin: No rash. Neurologic: Awake, alert and oriented times 3. No lateralizing deficits noted on gross inspection. Psychiatric: In good spirits despite stressors. - Labs CBC & Chem 7: 04/06/17 05:48 04/05/17 15:15 Labs: Abnormal Lab Results - Last 24 Hours (Table) 04/04/17 04/04/17 04/04/17 Range/Units 17:20 17:20 22:36 WBC 12.1 H 14.5 H (3.8-10.6) k/uL Neutrophils # 9.0 H (1.3-7.7) k/uL PT (9.0-12.0) sec INR (<1.2) Potassium 3.0 L* (3.5-5.1) mmol/L POC Glucose (mg/dL) (75-99) mg/dL Magnesium (1.6-2.3) mg/dL Total Bilirubin 1.7 H (0.2-1.3) mg/dL Unconjugated Bilirubin 1.2 H (0.0-1.1) mg/dL Delta Bilirubin 0.5 H (0.0-0.2) mg/dL Albumin (3.5-5.0) g/dL 04/04/17 04/05/17 04/05/17 Range/Units 22:36 04:53 04:53 WBC 11.9 H (3.8-10.6) k/uL Neutrophils # 8.7 H (1.3-7.7) k/uL PT (9.0-12.0) sec INR (<1.2) Potassium 3.1 L 3.2 L (3.5-5.1) mmol/L POC Glucose (mg/dL) (75-99) mg/dL Magnesium 1.5 L (1.6-2.3) mg/dL Total Bilirubin 1.5 H (0.2-1.3) mg/dL Unconjugated Bilirubin (0.0-1.1) mg/dL Delta Bilirubin (0.0-0.2) mg/dL Albumin 3.4 L (3.5-5.0) g/dL 04/05/17 04/05/17 Range/Units 04:53 05:59 WBC (3.8-10.6) k/uL Neutrophils # (1.3-7.7) k/uL PT 14.0 H (9.0-12.0) sec INR 1.4 H (<1.2) Potassium (3.5-5.1) mmol/L POC Glucose (mg/dL) 102 H (75-99) mg/dL Magnesium (1.6-2.3) mg/dL Total Bilirubin (0.2-1.3) mg/dL Unconjugated Bilirubin (0.0-1.1) mg/dL Delta Bilirubin (0.0-0.2) mg/dL Albumin (3.5-5.0) g/dL Assessment and Plan (1) Colitis Narrative/Plan: Infectious versus ischemic, ischemic favored Status: Acute (2) Hematochezia Narrative/Plan: Secondary to #1. Exacerbated by coagulopathy from Coumadin therapy Status: Acute (3) Atrial fibrillation with slow ventricular response Narrative/Plan: Chronic Status: Chronic (4) Hypertension Narrative/Plan: Chronic Status: Chronic (5) Thymoma, malignant Narrative/Plan: By history in the past 1990 Status: Resolved (6) History of tonsillectomy Status: Resolved (7) H/O hysterectomy with oophorectomy Narrative/Plan: Unilateral oophorectomy, prior tube and ovary had ruptured from tubal . Status: Resolved (8) Hypokalemia Status: Acute (9) Hypomagnesemia Status: Acute (10) Hyperbilirubinemia Narrative/Plan: Mild Status: Acute Plan: 1. GI has been consulted and has placed the patient on clear liquids. Recommend to continue the patient on clear liquids. 2. Antibiotics including Kefzol and Flagyl pending further recommendations. Films reviewed with the radiologist Dr. Trejo regarding the cyst on the films. This does appear to be a simple cyst originating from prior ovarian tissue versus other tissue in that region. It does not show any signs of an abscess the wall was not thickened there are no air-fluid levels with colitis and with cyst being called in the pelvis. The cyst will need to be followed up as an outpatient. The patient's liver cyst should be followed up as well. 3. Repeat bilirubin in a.m. 4. Repeat electrolytes ordered as well as repeat CBC. Hemoglobin has been fairly stable despite some continued bleeding. 5. Appropriate home medications for hypertension continued including patient's beta stefan and ADITI inhibitor and calcium channel stefan. 6. Will hold metformin with patient's acute state because of risk of acidosis. Will reevaluate on discharge. 7. Patient already on a proton pump inhibitor from ER and ER consultation with Dr. Ros Franco. 8. Additional dose of oral vitamin K as INR still elevated and patient still having some bleeding. 9. DVT prophylaxis with SCDs; patient also ambulating to the bathroom. 10. GI recommendations appreciated. Patient to remain on clear liquids at this time. If her bleeding continues to decrease and patient remains stable she could possibly be discharged per GI and follow-up as an outpatient in 2-3 weeks for a colonoscopy. Please see GI note. We'll see how the patient does overnight and labs progress.
[2017-04-05] MEDS: amLODIPine 10 MG TAB PO SCH (20:35)
[2017-04-05] MEDS: LISINOPRIL 20 MG TAB PO SCH (20:35)
[2017-04-05 20:53] LABS: Glucose,Whole Blood 92 mg/dL (75-99)
[2017-04-05] MEDS: MELATONIN 5 MG TABLET PO SCH (23:05)
[2017-04-06] MEDS: 0.9% NACL WITH KCL 20 MEQ/L 1,000 ML IV SCH (05:01)
[2017-04-06] MEDS: metroNIDAZOLE-NS PMX 500 MG in SALINE 1 100ML.BAG IVPB SCH ×2 (05:03→12:41)
[2017-04-06 05:49] LABS: Glucose,Whole Blood 87 mg/dL (75-99)
[2017-04-06] MEDS: ceFAZolin 2 GM in SODIUM CHLORIDE 0.9% 100 ML IVPB SCH (06:06)
[2017-04-06 06:47] LABS: CH 32.1; CHCM 33.9; HCT 37.2 % (34.0-46.0); HDW 2.64; HGB 12.2 gm/dL (11.4-16.0); MCH 31.3 pg (25.0-35.0); MCHC 32.8 g/dL (31.0-37.0); MCV 95.3 fL (80.0-100.0); Mean Platelet Volume 7.8; RDW 13.2 % (11.5-15.5); WBC 12.4 k/uL (3.8-10.6)
[2017-04-06] MEDS: B COMPLEX-VIT C-VIT E-ZINC 1 EACH TAB PO SCH (09:10)
[2017-04-06] MEDS: METOPROLOL SUCCINATE (ER) 50 MG TAB.ER.24H PO SCH (09:10)
[2017-04-06] MEDS: LACTOBACILLUS ACIDOPH & BULGAR 1 EACH PACKET PO SCH (09:11)
[2017-04-06] MEDS: PANTOPRAZOLE 40 MG/10 ML VIAL IV SCH (09:11)
[2017-04-06] MEDS: CHOLECALCIFEROL 1,000 UNIT TAB PO SCH (09:11)
[2017-04-06] MEDS: LINAGLIPTIN 5 MG TABLET PO SCH (09:11)
[2017-04-06 09:37] VITALS: BP 125/79; PULSE 74; RESP 18; TEMP 97
[2017-04-06 11:44] LABS: Glucose,Whole Blood 82 mg/dL (75-99)
--- NOTE | 2017-04-07 13:19 | P.DS ---
Providers Date of admission: 04/04/17 14:05 Expected date of discharge: 04/06/17 Attending physician: Faraz Hawkins Consults: 04/04/17 14:06 Consult Physician Urgent Consulting Provider: Claudia Franco Consult Reason/Comments: GI bleed Do you want consulting provider notified?: Yes, Notify in am Primary care physician: Jean Paul Gonzalez [facility] Course: This 76-year-old female patient presented with a chief complaint of bloody diarrhea. bPatient state that she had not had any recent bowel habit changes in days prior. Normal pattern is formed brown stool every one to two days. Patient states that yesterday afternoon she began to have firm stool, followed by mushy stool that became clear liquid by 6 pm. Beginning at 7 pm she began to have bright red blood per rectum. She denies it being mixed with any stool. She indicates by this morning the blood was clotted and dark. Patient indicates that every 20 minutes or so she has less than a minute of 8/ 10 pain that subsides on its own in her bilateral lower quadrants across her pelvis. Pain subsides back to resolution after that time. This stopped from 2 -6 pm and then restarted. No reported new dietary changes. Not exposed to new foods. Lives with sister who is not ill. Patient states that she had a similar episode 12-15 years ago which she felt had something to do with ingredients in a malt from [employer] and another episode subsequently with the same exposure. She states she did have a colonoscopy at that time and she had significant inflammation but was told it was not ulcerative colitis. No nausea or vomiting. No fever or chills. No appetite loss. No upper abdominal pain. No history of gastric ulcers. No hematemesis. 04/06: Patient is currently tolerating clear liquid diet which she states she is sick of and would like to have oatmeal and yogurt which will be arranged prior to her discharge. She denies any epigastric tenderness. She does have left lower quadrant tenderness which is mild and improving. She remains off Coumadin. Plan is for outpatient scope done in 2-[address] Douglass. Hemoglobin today is at 12.2. Discharge diagnoses: (1) Colitis, acute (2) Hematochezia, exacerbated by coagulopathy from Coumadin therapy (3) Atrial fibrillation with slow ventricular response, chronic atrial fibrillation (4) Hypertension (5) Thymoma, malignant, history, diagnosed in 1990 (6) History of tonsillectomy (7) H/O hysterectomy with oophorectomy with possible ovarian cyst to be further evaluated as an outpatient (8) Hypokalemia (9) Hypomagnesemia (10) Hyperbilirubinemia Discharge plan: Home Impression and plan of care have been directed as dictated by the signing physician. Bridget Aiken nurse practitioner acting as scribe for signing physician. Patient Condition at Discharge: Good Plan - Discharge Summary New Discharge Prescriptions: New Melatonin 5 mg PO HS tab metroNIDAZOLE [Flagyl] 500 mg PO Q8HR #30 tab Continue amLODIPine BESYLATE/BENAZEPRIL [Lotrel 10-40 mg Capsule] 1 cap PO HS Metoprolol Succinate (ER) [Toprol XL] 50 mg PO DAILY Cholecalciferol [Vitamin D3] 1,000 unit PO DAILY sitaGLIPtin PHOS/metFORMIN HCL [Janumet 50-500 mg Tablet] 1 tab PO DAILY Vitamin B Complex 1 cap PO DAILY L.acidoph,Paracasei, B.lactis [Probiotic] 1 cap PO DAILY Acetaminophen/Diphenhydramine [Tylenol PM 500-25mg] 1 tab PO HS PRN PRN Reason: Insomnia Discontinued Warfarin [Coumadin] 5 mg PO MOTUTHFR Warfarin [Coumadin] 2.5 mg PO SUWESA Discharge Medication List Cholecalciferol [Vitamin D3] 1,000 unit PO DAILY 10/15/16 [History] Metoprolol Succinate (ER) [Toprol XL] 50 mg PO DAILY 10/15/16 [History] amLODIPine BESYLATE/BENAZEPRIL [Lotrel 10-40 mg Capsule] 1 cap PO HS 10/15/16 [ History] sitaGLIPtin PHOS/metFORMIN HCL [Janumet 50-500 mg Tablet] 1 tab PO DAILY [History] L.acidoph,Paracasei, B.lactis [Probiotic] 1 cap PO DAILY 11/20/16 [History] Vitamin B Complex 1 cap PO DAILY 11/20/16 [History] Acetaminophen/Diphenhydramine [Tylenol PM 500-25mg] 1 tab PO HS PRN 04/04/17 [ History] Melatonin 5 mg PO HS tab 04/06/17 [Rx] metroNIDAZOLE [Flagyl] 500 mg PO Q8HR #30 tab 04/06/17 [Rx] Follow up Appointment(s)/Referral(s): Jean Paul Gonzalez MD [Primary Care Provider] - 1 Week Claudia Franco MD [STAFF PHYSICIAN] - 1 Week Patient Instructions/Handouts: Gastrointestinal Bleeding (DC) Activity/Diet/Wound Care/Special Instructions: Soft diet, no nuts, berries. Discharge Disposition: HOME SELF-CARE
== END 2017-04-06 14:51 | disposition home or self-care (01) | DRG 387 ==
LOC: EC 10:09 → 6SEL 14:05
PROVIDERS: ADMIT Internal Medicine Geriatric Medicine; ATTEND Internal Medicine Geriatric Medicine
DX: K51.511 Left sided colitis with rectal bleeding (principal); E83.42 Hypomagnesemia; I48.2 Chronic atrial fibrillation; K76.89 Other specified diseases of liver; E11.9 Type 2 diabetes mellitus without complications; E87.6 Hypokalemia; I10 Essential (primary) hypertension; T45.515A Adverse effect of anticoagulants, initial encounter; E78.00 Pure hypercholesterolemia, unspecified; N83.202 Unspecified ovarian cyst, left side; K57.30 Diverticulosis of large intestine without perforation or abscess without bleeding; R42 Dizziness and giddiness; E80.6 Other disorders of bilirubin metabolism; M19.90 Unspecified osteoarthritis, unspecified site; Z80.9 Family history of malignant neoplasm, unspecified; Z82.49 Family history of ischemic heart disease and other diseases of the circulatory system; Z86.79 Personal history of other diseases of the circulatory system; Z92.3 Personal history of irradiation; Z88.0 Allergy status to penicillin; Z90.710 Acquired absence of both cervix and uterus; Z79.01 Long term (current) use of anticoagulants; Z87.891 Personal history of nicotine dependence; Z86.59 Personal history of other mental and behavioral disorders; Z87.19 Personal history of other diseases of the digestive system; Z86.010 Personal history of colon polyps; Z79.84 Long term (current) use of oral hypoglycemic drugs; Z79.899 Other long term (current) drug therapy; Z91.81 History of falling; Z90.721 Acquired absence of ovaries, unilateral; Z51.81 Encounter for therapeutic drug level monitoring; Z87.42 Personal history of other diseases of the female genital tract; Z90.79 Acquired absence of other genital organ(s); Z85.238 Personal history of other malignant neoplasm of thymus
CPT/HCPCS: 36415; 74177; 80048; 80051; 80053; 81003; 82247; 82248; 82550; 82553; 83605; 83735; 85025; 85027; 85610; 85730; 86850; 86900; 86901; 93005

== ENCOUNTER 2017-05-18 20:23 | Inpatient (IN) | payer MEDICARE, BC ==
[2017-05-18] MEDS ORDERED: SODIUM CHLORIDE 0.9% 1,000 ML IV STA ×2 (23:12)
--- NOTE | 2017-05-18 23:35 | ED ---
GI Bleed HPI - General Source: patient, RN notes reviewed, old records reviewed Mode of arrival: ambulatory Limitations: no limitations <Rakel Diaz - Last Filed: 05/19/17 04:29> <Logan Stuart - Last Filed: 05/27/17 22:27> - General Chief complaint: GI Bleed Stated complaint: GI Bleed Time Seen by Provider: 05/18/17 23:02 - History of Present Illness Initial comments: This is a pleasant 76-year-old female chief complaint of bloody stools for the past day since 5:00. Patient reports that she's had history of colitis before. She states that she had immediately admitted in the past she currently takes L ) A. fib. She reports that the last time this happened she waited too long before coming to emergency department and was concerned that this could be the case again today. Patient states that recently every hour she's had a significant amount of blood like diarrhea. Very little stool production. Patient reports that she does have some cramping abdominal tenderness and left lower quadrant. She denies any fever or chills. She reports that she has no shortness of breath or headache or vision changes. He relates that she is supposed to have a colonoscopy scheduled in 2 weeks. (Rakel Diaz) - Related Data Home Medications Medication Instructions Recorded Confirmed Cholecalciferol [Vitamin D3] 1,000 unit PO DAILY 10/15/16 05/18/17 amLODIPine BESYLATE/BENAZEPRIL 1 cap PO HS 10/15/16 05/18/17 [Lotrel 10-40 mg Capsule] sitaGLIPtin PHOS/metFORMIN HCL 1 tab PO DAILY 10/15/16 05/18/17 [Janumet 50-500 mg Tablet] L.acidoph,Paracasei, B.lactis 1 cap PO DAILY 11/20/16 05/18/17 [Probiotic] Vitamin B Complex 1 cap PO DAILY 11/20/16 05/18/17 Acetaminophen/Diphenhydramine 1 tab PO HS PRN 04/04/17 05/18/17 [Tylenol PM 500-25mg] Apixaban [Eliquis] 5 mg PO BID 05/18/17 05/18/17 Melatonin 5 mg PO HS PRN 05/18/17 05/18/17 Metoprolol Tartrate [Lopressor] 50 mg PO DAILY 05/18/17 05/18/17 Allergies Allergy/AdvReac Type Severity Reaction Status Date / Time Penicillins Allergy Swelling Verified 05/18/17 23:07 Review of Systems ROS Other: All systems not noted in ROS Statement are negative. <Rakel Diaz - Last Filed: 05/19/17 04:29> ROS Other: All systems not noted in ROS Statement are negative. <CharissaLogan jauregui - Last Filed: 05/27/17 22:27> ROS Statement: Those systems with pertinent positive or pertinent negative responses have been documented in the HPI. Past Medical History Past Medical History: Cancer, Diabetes Mellitus, Hypertension, Osteoarthritis ( OA) Additional Past Medical History / Comment(s): Pt states that she has been told that she has a-fib but recently told she does not have a-fib. 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 diverticulosis. colitis. 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 Past Anesthesia/Blood Transfusion Reactions: No Reported Reaction, Motion Sickness Past Psychological History: Depression Smoking Status: Former smoker Past Alcohol Use History: Occasional Past Drug Use History: None Reported - Past Family History Brother(s) Family Medical History: Deep Vein Thrombosis (DVT) Mother Family Medical History: Cancer <Rakel Diaz - Last Filed: 05/19/17 04:29> General Exam Limitations: no limitations General appearance: alert, in no apparent distress Head exam: Present: atraumatic, normocephalic, normal inspection Eye exam: Present: normal appearance, PERRL, EOMI. Absent: scleral icterus, conjunctival injection, periorbital swelling ENT exam: Present: normal exam, mucous membranes moist Neck exam: Present: normal inspection. Absent: tenderness, meningismus, lymphadenopathy Respiratory exam: Present: normal lung sounds bilaterally. Absent: respiratory distress, wheezes, rales, rhonchi, stridor Cardiovascular Exam: Present: regular rate, normal rhythm, normal heart sounds. Absent: systolic murmur, diastolic murmur, rubs, gallop, clicks GI/Abdominal exam: Present: soft, tenderness (Left lower quadrant tenderness.), normal bowel sounds. Absent: distended, guarding, rebound, rigid Extremities exam: Present: normal inspection, full ROM, normal capillary refill. Absent: tenderness, pedal edema, joint swelling, calf tenderness Back exam: Present: normal inspection Neurological exam: Present: alert, oriented X3, CN II-XII intact <Rakel Diaz - Last Filed: 05/19/17 04:29> <Logan Stuart - Last Filed: 05/27/17 22:27> - General Exam Comments Initial Comments: 76-year-old female. No acute distress. (Rakel Diaz) Vital Signs 05/18/17 05/18/17 05/19/17 20:40 23:40 01:18 Temperature 99.1 F Pulse Rate 83 73 73 Respiratory 16 18 18 Rate Blood Pressure 161/85 166/77 145/68 O2 Sat by Pulse 96 96 93 L Oximetry 05/19/17 05/19/17 02:28 03:11 Temperature 98.5 F 98.1 F Pulse Rate 71 82 Respiratory 16 18 Rate Blood Pressure 124/70 126/69 O2 Sat by Pulse 95 96 Oximetry Medical Decision Making - Lab Data Result diagrams: 05/18/17 23:30 05/18/17 23:30 - Radiology Data Radiology results: report reviewed <Elodia Diazily - Last Filed: 05/19/17 04:29> - Lab Data Result diagrams: 05/20/17 07:56 05/20/17 07:56 <Logan Stuart - Last Filed: 05/27/17 22:27> - Medical Decision Making 76-year-old female Presents emergency department to plan of 1 day of left lower quadrant abdominal pain and bright red stools since 5 PM. Patient had multiple bloody stools while in the emergency department. Patient was refusing any medication for pain. She reports that her pain is dull and when she has a movement in her bowels it becomes acutely worse for approximately minutes and then subsides. Patient is currently on elquist for chronic A. fib. Patient received IV fluids and laboratory obtained. Patient does have a fecal occult positive. CT had abdomen was performed and shows minimal colitis. Discussed this with Dr. Stuart. Discussed with Dr. Gonzalez. Patient will be admitted for observation and started on Levaquin and Flagyl for colitis. Also consult GI. ( Rakel Diaz) I saw this patient in conjunction with the physician elementary assistant teacher. I performed independent history and physical exam. Agree with case management. (Logan Stuart) - Lab Data Lab Results 05/18/17 05/18/17 05/18/17 Range/Units 23:30 23:30 23:30 WBC 13.2 H (3.8-10.6) k/uL RBC 4.44 (3.80-5.40) m/uL Hgb 13.7 (11.4-16.0) gm/dL Hct 41.5 (34.0-46.0) % MCV 93.5 (80.0-100.0) fL MCH 31.0 (25.0-35.0) pg MCHC 33.1 (31.0-37.0) g/dL RDW 13.1 (11.5-15.5) % Plt Count 304 (150-450) k/uL Neutrophils % 67 % Lymphocytes % 24 % Monocytes % 6 % Eosinophils % 2 % Basophils % 1 % Neutrophils # 8.9 H (1.3-7.7) k/uL Lymphocytes # 3.1 (1.0-4.8) k/uL Monocytes # 0.8 (0-1.0) k/uL Eosinophils # 0.2 (0-0.7) k/uL Basophils # 0.1 (0-0.2) k/uL PT (9.0-12.0) sec INR (<1.2) APTT (22.0-30.0) sec Sodium 139 (137-145) mmol/L Potassium 3.5 (3.5-5.1) mmol/L Chloride 101 (98-107) mmol/L Carbon Dioxide 25 (22-30) mmol/L Anion Gap 13 mmol/L BUN 20 H (7-17) mg/dL Creatinine 0.80 (0.52-1.04) mg/dL Est GFR (MDRD) Af Amer >60 (>60 ml/min/1.73 sqM) Est GFR (MDRD) Non-Af >60 (>60 ml/min/1.73 sqM) Glucose 89 (74-99) mg/dL POC Glucose (mg/dL) (75-99) mg/dL POC Glu Laborer ID Plasma Lactic Acid Abraham (0.7-2.0) mmol/L Calcium 10.3 H (8.4-10.2) mg/dL Magnesium 1.5 L (1.6-2.3) mg/dL Total Bilirubin 0.7 (0.2-1.3) mg/dL AST 30 (14-36) U/L ALT 37 (9-52) U/L Alkaline Phosphatase 74 (38-126) U/L Total Creatine Kinase 80 (30-135) U/L CK-MB (CK-2) 0.7 (0.0-2.4) ng/mL CK-MB (CK-2) Rel Index 0.9 Troponin I <0.012 (0.000-0.034) ng/mL Total Protein 8.4 H (6.3-8.2) g/dL Albumin 4.6 (3.5-5.0) g/dL CA 125 Antigen (0.0-30.1) U/mL Stool Occult Blood (Negative) Blood Type Blood Type Recheck Antibody Screen Spec Expiration Date 05/18/17 05/18/17 05/18/17 Range/Units 23:30 23:30 23:30 WBC (3.8-10.6) k/uL RBC (3.80-5.40) m/uL Hgb (11.4-16.0) gm/dL Hct (34.0-46.0) % MCV (80.0-100.0) fL MCH (25.0-35.0) pg MCHC (31.0-37.0) g/dL RDW (11.5-15.5) % Plt Count (150-450) k/uL Neutrophils % % Lymphocytes % % Monocytes % % Eosinophils % % Basophils % % Neutrophils # (1.3-7.7) k/uL Lymphocytes # (1.0-4.8) k/uL Monocytes # (0-1.0) k/uL Eosinophils # (0-0.7) k/uL Basophils # (0-0.2) k/uL PT 10.9 (9.0-12.0) sec INR 1.1 (<1.2) APTT 26.9 (22.0-30.0) sec Sodium (137-145) mmol/L Potassium (3.5-5.1) mmol/L Chloride (98-107) mmol/L Carbon Dioxide (22-30) mmol/L Anion Gap mmol/L BUN (7-17) mg/dL Creatinine (0.52-1.04) mg/dL Est GFR (MDRD) Af Amer (>60 ml/min/1.73 sqM) Est GFR (MDRD) Non-Af (>60 ml/min/1.73 sqM) Glucose (74-99) mg/dL POC Glucose (mg/dL) (75-99) mg/dL POC Glu Laborer ID Plasma Lactic Acid Abraham 0.9 (0.7-2.0) mmol/L Calcium (8.4-10.2) mg/dL Magnesium (1.6-2.3) mg/dL Total Bilirubin (0.2-1.3) mg/dL AST (14-36) U/L ALT (9-52) U/L Alkaline Phosphatase (38-126) U/L Total Creatine Kinase (30-135) U/L CK-MB (CK-2) (0.0-2.4) ng/mL CK-MB (CK-2) Rel Index Troponin I (0.000-0.034) ng/mL Total Protein (6.3-8.2) g/dL Albumin (3.5-5.0) g/dL CA 125 Antigen 7.6 (0.0-30.1) U/mL Stool Occult Blood (Negative) Blood Type Blood Type Recheck Antibody Screen Spec Expiration Date 05/19/17 05/19/17 05/19/17 Range/Units 00:01 01:10 07:09 WBC (3.8-10.6) k/uL RBC (3.80-5.40) m/uL Hgb (11.4-16.0) gm/dL Hct (34.0-46.0) % MCV (80.0-100.0) fL MCH (25.0-35.0) pg MCHC (31.0-37.0) g/dL RDW (11.5-15.5) % Plt Count (150-450) k/uL Neutrophils % % Lymphocytes % % Monocytes % % Eosinophils % % Basophils % % Neutrophils # (1.3-7.7) k/uL Lymphocytes # (1.0-4.8) k/uL Monocytes # (0-1.0) k/uL Eosinophils # (0-0.7) k/uL Basophils # (0-0.2) k/uL PT (9.0-12.0) sec INR (<1.2) APTT (22.0-30.0) sec Sodium (137-145) mmol/L Potassium (3.5-5.1) mmol/L Chloride (98-107) mmol/L Carbon Dioxide (22-30) mmol/L Anion Gap mmol/L BUN (7-17) mg/dL Creatinine (0.52-1.04) mg/dL Est GFR (MDRD) Af Amer (>60 ml/min/1.73 sqM) Est GFR (MDRD) Non-Af (>60 ml/min/1.73 sqM) Glucose (74-99) mg/dL POC Glucose (mg/dL) 91 (75-99) mg/dL POC Glu Laborer ID Awilda Emilee Plasma Lactic Acid Abraham (0.7-2.0) mmol/L Calcium (8.4-10.2) mg/dL Magnesium (1.6-2.3) mg/dL Total Bilirubin (0.2-1.3) mg/dL AST (14-36) U/L ALT (9-52) U/L Alkaline Phosphatase (38-126) U/L Total Creatine Kinase (30-135) U/L CK-MB (CK-2) (0.0-2.4) ng/mL CK-MB (CK-2) Rel Index Troponin I (0.000-0.034) ng/mL Total Protein (6.3-8.2) g/dL Albumin (3.5-5.0) g/dL CA 125 Antigen (0.0-30.1) U/mL Stool Occult Blood Positive H (Negative) Blood Type A Positive Blood Type Recheck No Antibody Screen NEGATIVE Spec Expiration Date 05/22/2017 - 230005/19/17 Range/Units 12:22 WBC (3.8-10.6) k/uL RBC (3.80-5.40) m/uL Hgb (11.4-16.0) gm/dL Hct (34.0-46.0) % MCV (80.0-100.0) fL MCH (25.0-35.0) pg MCHC (31.0-37.0) g/dL RDW (11.5-15.5) % Plt Count (150-450) k/uL Neutrophils % % Lymphocytes % % Monocytes % % Eosinophils % % Basophils % % Neutrophils # (1.3-7.7) k/uL Lymphocytes # (1.0-4.8) k/uL Monocytes # (0-1.0) k/uL Eosinophils # (0-0.7) k/uL Basophils # (0-0.2) k/uL PT (9.0-12.0) sec INR (<1.2) APTT (22.0-30.0) sec Sodium (137-145) mmol/L Potassium (3.5-5.1) mmol/L Chloride (98-107) mmol/L Carbon Dioxide (22-30) mmol/L Anion Gap mmol/L BUN (7-17) mg/dL Creatinine (0.52-1.04) mg/dL Est GFR (MDRD) Af Amer (>60 ml/min/1.73 sqM) Est GFR (MDRD) Non-Af (>60 ml/min/1.73 sqM) Glucose (74-99) mg/dL POC Glucose (mg/dL) 99 (75-99) mg/dL POC Glu Laborer ID Emilee Kaiser Plasma Lactic Acid Abraham (0.7-2.0) mmol/L Calcium (8.4-10.2) mg/dL Magnesium (1.6-2.3) mg/dL Total Bilirubin (0.2-1.3) mg/dL AST (14-36) U/L ALT (9-52) U/L Alkaline Phosphatase (38-126) U/L Total Creatine Kinase (30-135) U/L CK-MB (CK-2) (0.0-2.4) ng/mL CK-MB (CK-2) Rel Index Troponin I (0.000-0.034) ng/mL Total Protein (6.3-8.2) g/dL Albumin (3.5-5.0) g/dL CA 125 Antigen (0.0-30.1) U/mL Stool Occult Blood (Negative) Blood Type Blood Type Recheck Antibody Screen Spec Expiration Date - Radiology Data CT shows an oval wall sick pelvic mass unchanged compared to old exam. This could be arising in the left ovary. Minimal wall thickening in the mid sigmoid colon that is improved compared to last exam. Consistent with minimal colitis. (Rakel Diaz) Disposition Time of Disposition: 02:20 <Rakel Diaz - Last Filed: 05/19/17 04:29> <Logan Stuart - Last Filed: 05/27/17 22:27> Clinical Impression: Colitis Disposition: ADMITTED IP TO THIS HOSP Condition: Good
[2017-05-18] MEDS: RX INFO: IV CONTRAST WAS GIVEN 1 EACH MISC MISCELLANE PRN (23:40)
[2017-05-18 23:59] LABS: Basophils # (A) 0.1 k/uL (0-0.2); Basophils % (A) 1 %; CH 31.9; CHCM 34.3; Eosinophils # (A) 0.2 k/uL (0-0.7); Eosinophils % (A) 2 %; HCT 41.5 % (34.0-46.0); HDW 2.56; HGB 13.7 gm/dL (11.4-16.0); Luc # (Auto) 0.18; Luc % (Auto) 1; Lymphocytes # (A) 3.1 k/uL (1.0-4.8); Lymphocytes % (A) 24 %; MCHC 33.1 g/dL (31.0-37.0); MCV 93.5 fL (80.0-100.0); Mean Platelet Volume 7.9; Monocytes # (A) 0.8 k/uL (0-1.0); Monocytes % (A) 6 %; Neutrophils # (A) 8.9 k/uL (1.3-7.7); Neutrophils % (A) 67 %; RBC 4.44 m/uL (3.80-5.40); RDW 13.1 % (11.5-15.5); WBC 13.2 k/uL (3.8-10.6); WBC (Perox) 13.44
[2017-05-19 00:14] LABS: ALT 37 U/L (9-52); AST 30 U/L (14-36); Alkaline Phosphatase 74 U/L (38-126); Anion Gap 13 mmol/L; Blood Urea Nitrogen 20 mg/dL (7-17); Calcium 10.3 mg/dL (8.4-10.2); Carbon Dioxide 25 mmol/L (22-30); Chloride 101 mmol/L (98-107); Glucose 89 mg/dL (74-99); Magnesium 1.5 mg/dL (1.6-2.3); Non-African American GFR(MDRD) >60 (>60 ml/min/1.73 sqM); Potassium 3.5 mmol/L (3.5-5.1); Sodium 139 mmol/L (137-145); Total Bilirubin 0.7 mg/dL (0.2-1.3); Total Protein 8.4 g/dL (6.3-8.2)
[2017-05-19 00:23] LABS: Creatine Kinase 80 U/L (30-135)
[2017-05-19 00:36] LABS: Creatine Kinase MB 0.7 ng/mL (0.0-2.4); Troponin I <0.012 ng/mL (0.000-0.034)
[2017-05-19 00:50] LABS: INR 1.1 (<1.2); Partial Thromboplastin Time 26.9 sec (22.0-30.0); Prothrombin Time 10.9 sec (9.0-12.0)
--- NOTE | 2017-05-19 01:16 | CT ---
EXAMINATION TYPE: CT abdomen pelvis w con DATE OF EXAM: 05/19/2017 COMPARISON: 04/04/2017 HISTORY: gi bleed, abd pain CT DLP: 762.50 mGycm Automated exposure control for dose reduction was used. TECHNIQUE: Helical acquisition of images was performed from the lung bases through the pelvis. CONTRAST: Performed without Oral Contrast and with IV Contrast, patient injected with 100 mL of Omnipaque 300. FINDINGS: Lung bases are clear of consolidation. Heart is enlarged. There is no pleural effusion. Liver spleen pancreas gallbladder appear normal. Bile ducts are not dilated. There is no adrenal mass. Kidneys show satisfactory contrast opacification. There is no hydronephrosi s. There is no retroperitoneal adenopathy. Appendix appears normal. There is a 7 x 5 cm cystic mass in the left adnexal region. There is slight thickening of the wall of the proximal sigmoid colon. There is no evidence of abscess. There are no dilated loops. Bladder dis tends smoothly. There is a degenerative first degree L4-5 spondylolisthesis. There is narrowing of L4 -5 disc space. IMPRESSION: THIN-WALLED OVAL-SHAPED CYSTIC PELVIC MASS IS UNCHANGED COMPARED TO OLD EXAM. THIS COULD BE ARISING F ROM THE LEFT OVARY. THERE IS MINIMAL WALL THICKENING IN THE MID SIGMOID COLON that IS IMPROVED COMPARED TO LAST EXAM CONS ISTENT WITH MINIMAL COLITIS.
[2017-05-19] MEDS: RX INFO: IV CONTRAST WAS GIVEN 1 EACH MISC MISCELLANE PRN (01:21)
[2017-05-19] MEDS ORDERED: NALOXONE 0.4 MG/ML 1 ML VIAL IV PRN (02:25)
[2017-05-19] MEDS ORDERED: ACETAMINOPHEN TAB 325 MG TAB PO PRN (02:25)
[2017-05-19] MEDS ORDERED: MORPHINE SULFATE 4 MG/ML SYRINGE IV PRN (02:25)
[2017-05-19] MEDS ORDERED: KETOROLAC 30 MG/ML 1 ML VIAL IVP PRN (02:25)
[2017-05-19] MEDS ORDERED: ONDANSETRON 4 MG/2 ML VIAL IVP PRN (02:25)
[2017-05-19] MEDS ORDERED: metroNIDAZOLE 500 MG TAB PO STA (02:28)
[2017-05-19] MEDS ORDERED: LEVOFLOXACIN 750MG-D5W PMX 750 MG in DEXTROSE/WATER 1 150ML.BAG IVPB STA (02:28)
[2017-05-19 03:46] VITALS: BMI 27.4
[2017-05-19] MEDS: SODIUM CHLORIDE 0.9% 1,000 ML IV SCH ×3 (03:47→21:16)
[2017-05-19 07:15] LABS: Glucose,Whole Blood 91 mg/dL (75-99)
[2017-05-19] MEDS: Acetaminophen-Codeine 300-30mg TAB PO PRN (07:50)
[2017-05-19 08:09] VITALS: RESP 18
--- NOTE | 2017-05-19 10:45 | P.CONS ---
History of Present Illness - Reason for Consult Consult date: 05/19/17 colitis Requesting physician: Jean Paul Gonzalez - History of Present Illness 76-year-old female admitted with abdominal cramping and bloody diarrhea 1 day. 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 Hospitalized with GI bleed end of March suspected ischemic colitis at that time. Last colonoscopy 4-[address] Perkins. Bleeding resolved within 2-3 days. She was seen in follow-up in the GI office and is scheduled for outpatient colonoscopy May 29. Yesterday she developed intense cramping to the lower abdomen followed by a large nonbloody bowel movement however subsequent several bowel movements became bloody without much stool. Few smaller bloody movements earlier this morning. Abdominal pain is improving. Afebrile. No recent antibiotics. CT abdomen and pelvis 7x 5cm cystic mass in the left adnexal region unchanged compared to old exam in March 2017 could be arising from the left ovary. Slight thickening of the wall the proximal sigmoid colon with no evidence of abscess. White count 13.2. Hemoglobin 13.7. INR 1.1. BUN 20. Creatinine 0.8. Platelets 304. Review of Systems Constitutional: Denies fever, chills, sweats, weight gain, or loss. HEENT: Negative for migraines, blurred vision or loss, earaches, drainage, tinnitus, oral mucosal lesions, dysphagia, or odynophagia. CARDIAC: Hypertension. Atrial fibrillation. Thymoma involving aorta 1990 status post radiation. Negative for chest pain, arrhythmias, or palpitation. RESPIRATORY: Negative for shortness of breath, hemoptysis, cough, or sputum production. GI: See HPI for pertinent findings. : Negative for hematuria, urgency, frequency, polyuria, or dysuria. GYNc: Denies possibility of . Negative vaginal discharge. MUSCULOSKELETAL: Osteoarthritis. Negative for muscle aches, swelling, arthritis , and arthralgias. NEUROLOGIC: Negative for stroke or TIA. ENDOCRINE: Diabetes mellitus. Negative for thyroid problems. SKIN: Negative for rash or itching. PSYCHIATRIC: Negative history for depression and anxiety All systems: negative (See HPI) Past Medical History Past Medical History: Cancer, Diabetes Mellitus, Hypertension, Osteoarthritis ( OA) Additional Past Medical History / Comment(s): Pt states that she has been told that she has a-fib but recently told she does not have a-fib. 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 diverticulosis. colitis. 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 Past Anesthesia/Blood Transfusion Reactions: No Reported Reaction, Motion Sickness Past Psychological History: Depression Smoking Status: Former smoker Past Alcohol Use History: Occasional Past Drug Use History: None Reported - Past Family History Brother(s) Family Medical History: Deep Vein Thrombosis (DVT) Mother Family Medical History: Cancer Medications and Allergies Home Medications Medication Instructions Recorded Confirmed Type Cholecalciferol [Vitamin D3] 1,000 unit PO DAILY 10/15/16 05/18/17 History amLODIPine BESYLATE/BENAZEPRIL 1 cap PO HS 10/15/16 05/18/17 History [Lotrel 10-40 mg Capsule] sitaGLIPtin PHOS/metFORMIN HCL 1 tab PO DAILY 10/15/16 05/18/17 History [Janumet 50-500 mg Tablet] L.acidoph,Paracasei, B.lactis 1 cap PO DAILY 11/20/16 05/18/17 History [Probiotic] Vitamin B Complex 1 cap PO DAILY 11/20/16 05/18/17 History Acetaminophen/Diphenhydramine 1 tab PO HS PRN 04/04/17 05/18/17 History [Tylenol PM 500-25mg] Apixaban [Eliquis] 5 mg PO BID 05/18/17 05/18/17 History Melatonin 5 mg PO HS PRN 05/18/17 05/18/17 History Metoprolol Tartrate [Lopressor] 50 mg PO DAILY 05/18/17 05/18/17 History Allergies Allergy/AdvReac Type Severity Reaction Status Date / Time Penicillins Allergy Swelling Verified 05/18/17 23:07 Physical Exam Vitals: Vital Signs Temp Pulse Pulse Resp BP BP Pulse Ox 05/19/17 08:08 97.3 F L 86 18 130/80 05/19/17 03:36 97.2 F L 88 16 145/79 96 05/19/17 03:11 98.1 F 82 18 126/69 96 05/19/17 02:28 98.5 F 71 16 124/70 95 05/19/17 01:18 73 18 145/68 93 L 05/18/17 23:40 73 18 166/77 96 05/18/17 20:40 99.1 F 83 16 161/85 96 Intake and Output 05/18/17 05/19/17 05/19/17 22:59 06:59 14:59 Other: # Bowel Movements 1 Weight 82.554 kg 82 kg General appearance: The patient is alert, oriented, in no acute distress. HET: Head is normocephalic and atraumatic. Pupils are equal and reactive. Oropharynx is clear without lesions. Neck: Supple without lymphadenopathy. Trachea midline. Heart: S1 S2. Regular rate and rhythm. Lungs: No crackles or wheezes are heard. Abdomen: Soft, mild bilateral lower quadrant tenderness greater than left and right, nondistended with bowel sounds. No peritoneal signs. No palpable organomegaly or masses. Extremities: Normal skin color and turgor. No cyanosis, rash, ulceration, clubbing, or edema. Radial and pedal pulses are 2/4 bilaterally. Neurological: No focal deficits. Strength and sensation are grossly intact. Results CBC & Chem 7: 05/18/17 23:30 05/18/17 23:30 Labs: Abnormal Lab Results - Last 24 Hours (Table) 05/18/17 05/18/17 05/19/17 Range/Units 23:30 23:30 01:10 WBC 13.2 H (3.8-10.6) k/uL Neutrophils # 8.9 H (1.3-7.7) k/uL BUN 20 H (7-17) mg/dL Calcium 10.3 H (8.4-10.2) mg/dL Magnesium 1.5 L (1.6-2.3) mg/dL Total Protein 8.4 H (6.3-8.2) g/dL Stool Occult Blood Positive H (Negative) CT scan - abdomen: report reviewed (Dr. Franco) Assessment and Plan (1) Colitis Narrative/Plan: Suspect ischemic possible self limiting infectious possible inflammatory Status: Acute (2) Guaiac positive stools Status: Acute Plan: 1. Hold ELIQUIS. Continue IV antibiotics. 2. Colonoscopy tomorrow. Clear liquid diet. The tree cutter has discussed the risks, benefits and alternative therapies for the above-mentioned procedure and for both sedation/analgesia as well as necessary blood product administration, if indicated, as they pertain to this patient. The patient has indicated understanding and acceptance of the risks and procedures discussed. Thank you for this kind referral and the opportunity to participate in the care of your patient. This consultation was discussed with Dr. Franco. The impression and plan of care have been directed as dictated.
[2017-05-19 12:24] LABS: Glucose,Whole Blood 99 mg/dL (75-99)
[2017-05-19] MEDS ORDERED: PEG 3350-NA SULF,BICARB,CL/KCL 4,000 ML BOTTLE PO ONE (16:00)
[2017-05-19 17:19] LABS: Glucose,Whole Blood 96 mg/dL (75-99)
[2017-05-19] MEDS ORDERED: MELATONIN 5 MG TABLET PO PRN (18:22)
[2017-05-19] MEDS ORDERED: ACETAMINOPHEN TAB 500 MG TAB PO PRN (18:22)
--- NOTE | 2017-05-19 18:22 | P.HPIM ---
History of Present Illness H&P Date: 05/19/17 Chief Complaint: Rectal bleeding This 76-year-old female patient of mine with a past history of diabetes mellitus type 2, hypertension, osteoarthritis, atrial fibrillation was on Coumadin until recently when she switched to Eliquis after she was hospitalized at [facility] in March for lower GI bleed and she was supposed to follow-up with Dr. Davenport as an outpatient for colonoscopy as a matter fact she was scheduled to go for colonoscopy in May 29, patient was in her usual state of health about yesterday when she developed to have a increased abdominal pain associated with a large bowel movement she went and had a very large bowel movement putting-like around noon yesterday and right around 2:00 in the afternoon the till 5:00 in the evening she developed to have significant cramping in both eyes of the abdomen, and she started developing some bright red blood per rectum, she was evaluated in the ER she was found to have a a bloody stool and she was admitted to the hospital for evaluation by GI patient had a computed tomography scan of the abdomen and pelvis with contrast that showed colitis in the sigmoid area that appears better from the last time however she continued to have a pelvic mass about 57 cm that could be arising from the left ovary and because of that patient will need to have a pelvic ultrasound this will be done after she is through her colonoscopy for further evaluation and patient will need to be referred as an outpatient to one of the [facility] [employer] oncology for further evaluation I took the privilege to order CA-125 as well as CA-19-9 and CEA . Patient was seen in consultation by Dr. Davenport she is scheduled to go for colonoscopy tomorrow morning. Review of Systems Constitutional: Reports weakness, Denies anorexia, Denies chills, Denies lethargy, Denies malaise, Denies weight gain, Denies weight loss Eyes: denies blurred vision, denies bulging eye, denies decreased vision, denies diplopia Ears, nose, mouth and throat: Denies dysphagia, Denies neck lump, Denies sore throat, Denies vertigo Cardiovascular: Reports decreased exercise tolerance, Reports dyspnea on exertion, Reports high blood pressure, Reports shortness of breath, Denies chest pain, Denies paroxysmal nocturnal dyspnea, Denies rapid heart beat, Denies syncope Respiratory: Denies congestion, Denies cough with sputum, Denies home oxygen, Denies sleep apnea, Denies snoring, Denies wheezing Gastrointestinal: Reports abdominal pain, Reports BRBPR, Reports change in bowel habits, Reports hematochezia, Denies hematemesis, Denies melena, Denies nausea, Denies vomiting Genitourinary: Denies dysuria, Denies hematuria Menstruation: Reports post hysterectomy, Reports postmenopausal Musculoskeletal: Denies myalgias Musculoskeletal: absent: ankle pain, ankle stiffness, ankle swelling, elbow pain , elbow stiffness, elbow swelling, foot pain, foot stiffness, foot swelling, hand pain, hand stiffness, hand swelling, hip pain, hip stiffness, hip swelling , knee pain, knee stiffness, knee swelling, shoulder pain, shoulder stiffness, shoulder swelling, wrist pain, wrist stiffness, wrist swelling Integumentary: Denies pruritus, Denies rash Neurological: Denies numbness, Denies weakness Psychiatric: Denies anxiety, Denies depression Endocrine: Denies fatigue, Denies weight change Past Medical History Past Medical History: Cancer, Diabetes Mellitus, Hypertension, Osteoarthritis ( OA) Additional Past Medical History / Comment(s): Pt states that she has been told that she has a-fib but recently told she does not have a-fib. 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 diverticulosis. colitis. Left cystic adnexal mass thought to be due to left ovary. 57 cm History of Any Multi-Drug Resistant Organisms: None Reported Past Surgical History: Hysterectomy, Tonsillectomy Additional Past Surgical History / Comment(s): in 1990 she had thymoma that was wrapped around her aorta and was opened up and closed without removal and had radiation for treatment. Past Anesthesia/Blood Transfusion Reactions: No Reported Reaction, Motion Sickness Past Psychological History: Depression Smoking Status: Former smoker Past Alcohol Use History: Occasional Additional Past Alcohol Use History / Comment(s): She was a smoker of one pack per day for 34 years and quit in 1992. She drinks wine occasionally. She currently lives with her sister. Past Drug Use History: None Reported - Past Family History Brother(s) Family Medical History: Deep Vein Thrombosis (DVT) Additional Family Medical History / Comment(s): Patient had 1 brother that of strokes with history of coronary artery disease. Mother Family Medical History: Cancer Additional Family Medical History / Comment(s): Mother at age 85 from colon cancer. Father Additional Family Medical History / Comment(s): Father at age 67 from coronary artery disease and had history of cardiomyopathy. Son(s) Additional Family Medical History / Comment(s): Patient has 2 sons. One from a brain stem stroke and one is alive with no major medical problems. Patient has one daughter with no major medical problems. Sister(s) Additional Family Medical History / Comment(s): Patient have one sister that from a stroke and one sister is currently alive with history of atrial fibrillation and defibrillator. Medications and Allergies Home Medications Medication Instructions Recorded Confirmed Type Cholecalciferol [Vitamin D3] 1,000 unit PO DAILY 10/15/16 05/18/17 History amLODIPine BESYLATE/BENAZEPRIL 1 cap PO HS 10/15/16 05/18/17 History [Lotrel 10-40 mg Capsule] sitaGLIPtin PHOS/metFORMIN HCL 1 tab PO DAILY 10/15/16 05/18/17 History [Janumet 50-500 mg Tablet] L.acidoph,Paracasei, B.lactis 1 cap PO DAILY 11/20/16 05/18/17 History [Probiotic] Vitamin B Complex 1 cap PO DAILY 11/20/16 05/18/17 History Acetaminophen/Diphenhydramine 1 tab PO HS PRN 04/04/17 05/18/17 History [Tylenol PM 500-25mg] Apixaban [Eliquis] 5 mg PO BID 05/18/17 05/18/17 History Melatonin 5 mg PO HS PRN 05/18/17 05/18/17 History Metoprolol Tartrate [Lopressor] 50 mg PO DAILY 05/18/17 05/18/17 History Allergies Allergy/AdvReac Type Severity Reaction Status Date / Time Penicillins Allergy Swelling Verified 05/18/17 23:07 Physical Exam Vitals: Vital Signs Temp Pulse Pulse Resp BP BP Pulse Ox 05/19/17 10:41 86 05/19/17 08:08 97.3 F L 86 18 130/80 05/19/17 03:36 97.2 F L 88 16 145/79 96 05/19/17 03:11 98.1 F 82 18 126/69 96 05/19/17 02:28 98.5 F 71 16 124/70 95 05/19/17 01:18 73 18 145/68 93 L 05/18/17 23:40 73 18 166/77 96 05/18/17 20:40 99.1 F 83 16 161/85 96 Intake and Output 05/19/17 05/19/17 05/19/17 06:59 14:59 22:59 Other: # Voids 3 1 # Bowel Movements 1 Weight 82 kg - Constitutional General appearance: average body habitus, no acute distress - EENT Eyes: anicteric sclerae, EOMI, PERRLA, no ptosis, no scleral icterus, normal appearance ENT: hearing grossly normal, NA/AT, normal oropharynx, no thrush Ears: bilateral: normal - Neck Neck: no lymphadenopathy, normal ROM, no rigidity, no stridor, no thyromegaly Carotids: bilateral: upstroke normal Thyroid: bilateral: normal size - Respiratory Respiratory: bilateral: diminished, negative: dullness, rales, rhonchi, wheezing , prolonged expiration, prolonged inspiration - Cardiovascular Rhythm: irregularly irregular Heart sounds: normal: S1, S2 Abnormal Heart Sounds: systolic murmur, no rub, no click - Gastrointestinal General gastrointestinal: normal bowel sounds, soft, tenderness (bilateral lower quadrants), no umbilical hernia, no ventral hernia - Integumentary Integumentary: normal, normal turgor - Neurologic Neurologic: CNII-XII intact - Musculoskeletal Musculoskeletal: gait normal, strength equal bilaterally - Psychiatric Psychiatric: A&O x's 3, appropriate affect, intact judgment & insight Results CBC & Chem 7: 05/18/17 23:30 05/18/17 23:30 Labs: Abnormal Lab Results - Last 24 Hours (Table) 05/18/17 05/18/17 05/19/17 Range/Units 23:30 23:30 01:10 WBC 13.2 H (3.8-10.6) k/uL Neutrophils # 8.9 H (1.3-7.7) k/uL BUN 20 H (7-17) mg/dL Calcium 10.3 H (8.4-10.2) mg/dL Magnesium 1.5 L (1.6-2.3) mg/dL Total Protein 8.4 H (6.3-8.2) g/dL Stool Occult Blood Positive H (Negative) Thrombosis Risk Factor Assmnt - DVT/VTE Prophylaxis DVT/VTE Prophylaxis: Mechanical Prophylaxis ordered - Choose All That Apply Each Risk Factor Represents 3 Points: Age 75 years or older Thrombosis Risk Factor Assessment Total Risk Factor Score: 3 Thrombosis Risk Factor Assessment Level: Moderate Risk Assessment and Plan Plan: Assessment and plan: 1. Possible ischemic colitis versus infectious with lower GI bleed. Continue patient on Levaquin 500 mg IV piggyback every 24 hours, metronidazole 500 mg IV piggyback every 8 hours, patient is scheduled to go for colonoscopy tomorrow morning continue to hold Eliquis for now. Patient was seen in consultation by GI the plan is to go for colonoscopy in the morning. 2. Acute blood loss anemia. Monitor the patient's CBC very closely. 3. Lower GI bleed likely related to ischemic colitis versus inflammatory colitis. Colonoscopy tomorrow morning. Continue IV antibiotic for now. 4. Atrial fibrillation. Continue patient on metoprolol ER 50 mg orally once every day, hold off Eliquis. 5. Hypertension and hypertensive cardiovascular disease. Continue metoprolol ER 50 minute gram orally once every day as well as Lotrel 10/40 mg orally once every day. 6. Diabetes mellitus type 2. Hold the patient metformin for now, continue Januvia 50 mg orally once every day along with a sliding scale insulin. 7. Left pelvic mass thought to be due to left ovarian cystic mass. We will obtain pelvic ultrasound tomorrow morning. 8. Vitamin D deficiency. Continue patient on vitamin D supplement. 9. DVT prophylaxis. Continue bilateral knee-high FRANK hose. 10. GI prophylaxis. Protonix 40 mg IV push every 24 hours. 11. Patient is full code. 12. Estimate a length of stay 2 midnights.
[2017-05-19] MEDS ORDERED: diphenhydrAMINE 25 MG CAP PO PRN (18:27)
--- NOTE | 2017-05-19 20:31 | US ---
EXAMINATION TYPE: US pelvic complete DATE OF EXAM: 05/19/2017 COMPARISON: NONE CLINICAL HISTORY: left cystic mass possible left ovary. Follow up to ct scan TECHNIQUE: Transabdominal (TA) EXAM MEASUREMENTS: Uterus: Surgically absent cm Endometrial Stripe: Surgically absent Right Ovary: Surgically absent cm Left Ovary: 5.4 x 4.8 x 4.9 cm 1. Uterus: Surgically absent 2. Endometrium: Surgically absent 3. Right Ovary: Surgically absent 4. Left Ovary: Cystic area seen measuring 5.4 x 4.8 x 4.9 cm no ovarian tissue visualized 5. Bilateral Adnexa: wnl 6. Posterior cul-de-sac: wnl Left ovarian cystic area seen measuring 5.4 x 4.8 x 4.9cm IMPRESSION: There is a thin-walled large cyst in the left adnexal region probably arising from the le ft ovary. No solid pelvic mass. No free fluid. Hysterectomy noted.
[2017-05-19 20:46] LABS: Glucose,Whole Blood 96 mg/dL (75-99)
[2017-05-19] MEDS ORDERED: amLODIPine 10 MG TAB PO SCH (21:00)
[2017-05-19] MEDS ORDERED: LISINOPRIL 20 MG TAB PO SCH (21:00)
[2017-05-19] MEDS: metroNIDAZOLE 500 MG TAB PO SCH (23:36)
[2017-05-20] MEDS ORDERED: metroNIDAZOLE-NS PMX 500 MG in SALINE 1 100ML.BAG IVPB SCH
[2017-05-20] MEDS ORDERED: LEVOFLOXACIN 500MG-D5W PMX 500 MG in DEXTROSE/WATER 1 100ML.BAG IVPB SCH (03:00)
[2017-05-20] MEDS: Acetaminophen-Codeine 300-30mg TAB PO PRN (03:12)
[2017-05-20 06:50] VITALS: BP 117/79; PULSE 83; TEMP 96.8
[2017-05-20] MEDS ORDERED: PROPOFOL 10 MG/ML 20 ML VIAL IV ONE (07:04)
[2017-05-20] MEDS ORDERED: IV FLUID CONTINUATION 200 ML IV ONE (07:07)
--- NOTE | 2017-05-20 07:29 | P.PCN ---
Date of Procedure: 05/20/17 Procedure(s) Performed: BRIEF HISTORY: Patient is a 76-year-old pleasant white female, was admitted to the hospital with acute onset of lower abdominal pain followed by bloody diarrhea of 1 day duration. She is similar episode in March 2017 at which time she was hospitalized for 3 days and was treated for possible ischemic colitis. The patient was scheduled for an elective colonoscopy as outpatient basis in 2 weeks but in the meantime because of this hospitalization for recurrent symptoms she is scheduled for colonoscopy today. PROCEDURE PERFORMED: Colonoscopy with biopsy. PREOPERATIVE DIAGNOSIS: Bloody diarrhea of 2 days' duration. IV sedation per Anesthesia. PROCEDURE: After informed consent was obtained, the patient, was brought into the endoscopy unit. IV sedation was administered by Anesthesia under continuous monitoring. Digital rectal examination was normal. Initially the Olympus CF- 160 flexible video colonoscope was then inserted in the rectum, gradually advanced into the cecum without any difficulty. Careful examination was performed as the scope was gradually being withdrawn. Ileocecal valve and the appendiceal orifice were visualized and appeared normal. Prep was excellent. Mucosa of the cecum, ascending colon, transverse colon, descending colon, appeared normal. There was segmental colitis involving the sigmoid colon extending from 30-40 cm from the anal verge with mucosal erythema friability and somewhat congested appearing mucosa consistent with ischemic colitis and biopsies were done from this area. The distal sigmoid colon, and rectum appeared normal. Scattered sigmoid diverticulosis seen. Retroflexion was performed in the rectum and no lesions were seen. The patient tolerated the procedure well. IMPRESSION: Segmental colitis involving the sigmoid colon extending from 30-40 cm from the anal verge with mucosal erythema, friability and somewhat congested appearing mucosa consistent with ischemic colitis. Scattered sigmoid diverticulosis. RECOMMENDATIONS: Findings of this examination were discussed with the patient briefly. At this time will await the biopsy results. Her diet will be to advance as tolerated. Since this is her second episode of ischemic colitis in 3 months duration, she will need to be investigated for hypercoagulable state.
[2017-05-20 07:45] LABS: Glucose,Whole Blood 104 mg/dL (75-99)
[2017-05-20 08:39] LABS: Basophils % (A) 1 %; CHCM 33.6; Eosinophils # (A) 0.1 k/uL (0-0.7); Eosinophils % (A) 2 %; HCT 37.9 % (34.0-46.0); HDW 2.64; HGB 12.4 gm/dL (11.4-16.0); Luc # (Auto) 0.14; Luc % (Auto) 2; Lymphocytes # (A) 1.7 k/uL (1.0-4.8); Lymphocytes % (A) 22 %; MCH 31.2 pg (25.0-35.0); MCHC 32.6 g/dL (31.0-37.0); MCV 95.7 fL (80.0-100.0); Mean Platelet Volume 7.4; Monocytes # (A) 0.6 k/uL (0-1.0); Monocytes % (A) 8 %; Neutrophils # (A) 4.9 k/uL (1.3-7.7); Neutrophils % (A) 66 %; RBC 3.96 m/uL (3.80-5.40); RDW 12.9 % (11.5-15.5); WBC 7.5 k/uL (3.8-10.6)
[2017-05-20 08:55] LABS: ALT 23 U/L (9-52); AST 22 U/L (14-36); Alkaline Phosphatase 53 U/L (38-126); Anion Gap 8 mmol/L; Blood Urea Nitrogen 5 mg/dL (7-17); Calcium 8.6 mg/dL (8.4-10.2); Carbon Dioxide 30 mmol/L (22-30); Chloride 104 mmol/L (98-107); Glucose 88 mg/dL (74-99); Non-African American GFR(MDRD) >60 (>60 ml/min/1.73 sqM); Sodium 142 mmol/L (137-145); Total Protein 6.7 g/dL (6.3-8.2)
[2017-05-20] MEDS ORDERED: CHOLECALCIFEROL 1,000 UNIT TAB PO SCH (09:00)
[2017-05-20] MEDS ORDERED: LINAGLIPTIN 5 MG TABLET PO SCH (09:00)
[2017-05-20] MEDS ORDERED: PANTOPRAZOLE 40 MG/10 ML VIAL IVP SCH (09:00)
[2017-05-20] MEDS ORDERED: B COMPLEX-VIT C-VIT E-ZINC 1 EACH TAB PO SCH (09:00)
[2017-05-20] MEDS ORDERED: METOPROLOL TARTRATE 50 MG TAB PO SCH (09:00)
[2017-05-20] MEDS: metroNIDAZOLE 500 MG TAB PO SCH (09:27)
[2017-05-20] MEDS: SODIUM CHLORIDE 0.9% 1,000 ML IV SCH (09:28)
[2017-05-20] MEDS: POTASSIUM CHLORIDE ER 20 MEQ TAB.ER PO SCH ×2 (10:10→12:26)
[2017-05-20 11:12] LABS: Glucose,Whole Blood 90 mg/dL (75-99)
--- NOTE | 2017-05-20 12:59 | P.DS ---
Providers Date of admission: 05/19/17 15:25 Expected date of discharge: 05/20/17 Attending physician: Jean Paul Gonzalez Consults: 05/19/17 02:29 Consult Physician Stat Consulting Provider: Claudia Franco Consult Reason/Comments: Colitis Do you want consulting provider notified?: Yes, Notify in am Primary care physician: Jean Paul Gonzalez Hospital Course: This 76-year-old female patient of mine with a past history of diabetes mellitus type 2, hypertension, osteoarthritis, atrial fibrillation was on Coumadin until recently when she switched to Eliquis after she was hospitalized at [facility] in March for lower GI bleed and she was supposed to follow-up with Dr. Davenport as an outpatient for colonoscopy as a matter fact she was scheduled to go for colonoscopy in May 29, patient was in her usual state of health about yesterday when she developed to have a increased abdominal pain associated with a large bowel movement she went and had a very large bowel movement putting-like around noon yesterday and right around 2:00 in the afternoon the till 5:00 in the evening she developed to have significant cramping in both eyes of the abdomen, and she started developing some bright red blood per rectum, she was evaluated in the ER she was found to have a a bloody stool and she was admitted to the hospital for evaluation by GI patient had a computed tomography scan of the abdomen and pelvis with contrast that showed colitis in the sigmoid area that appears better from the last time however she continued to have a pelvic mass about 57 cm that could be arising from the left ovary and because of that patient will need to have a pelvic ultrasound this will be done after she is through her colonoscopy for further evaluation and patient will need to be referred as an outpatient to one of the [facility] for further evaluation I took the privilege to order CA-125 as well as CA-19-9 and CEA . Patient was seen in consultation by Dr. Davenport she is scheduled to go for colonoscopy tomorrow morning. 05/20: Pelvic ultrasound showed a thin-walled large cyst in the left adnexal region probably arising from the left ovary. No solid pelvic mass. No free fluid. Patient underwent colonoscopy with biopsy findings segmental colitis involving the sigmoid colon extending from 30-40 cm from the anal verge with mucosal erythema, friability and somewhat congested appearing mucosa consistent with ischemic colitis. Scattered sigmoid diverticulosis. Patient was cleared to advance her diet as tolerated. Recommendations to investigate hypercoagulopathy state. Hemoglobin is stable at 12.4. Potassium will be replaced. Patient will be discharged home today in stable condition. Patient will be resumed back on eliquis. Discharge diagnoses: 1. Ischemic colitis 2. Acute blood loss anemia. 3. Lower GI bleed likely related to ischemic colitis 4. Atrial fibrillation. hold off Eliquis. 5. Hypertension and hypertensive cardiovascular disease. 6. Diabetes mellitus type 2. 7. Left pelvic mass thought to be due to left ovarian cystic mass. 8. Vitamin D deficiency. Discharge plan: home Impression and plan of care have been directed as dictated by the signing physician. Bridget Aiken nurse practitioner acting as scribe for signing physician. Patient Condition at Discharge: Good Plan - Discharge Summary New Discharge Prescriptions: Continue amLODIPine BESYLATE/BENAZEPRIL [Lotrel 10-40 mg Capsule] 1 cap PO HS Cholecalciferol [Vitamin D3] 1,000 unit PO DAILY sitaGLIPtin PHOS/metFORMIN HCL [Janumet 50-500 mg Tablet] 1 tab PO DAILY Vitamin B Complex 1 cap PO DAILY L.acidoph,Paracasei, B.lactis [Probiotic] 1 cap PO DAILY Acetaminophen/Diphenhydramine [Tylenol PM 500-25mg] 1 tab PO HS PRN PRN Reason: Insomnia Metoprolol Tartrate [Lopressor] 50 mg PO DAILY Melatonin 5 mg PO HS PRN PRN Reason: Insomnia Apixaban [Eliquis] 5 mg PO BID Discharge Medication List Cholecalciferol [Vitamin D3] 1,000 unit PO DAILY 10/15/16 [History] amLODIPine BESYLATE/BENAZEPRIL [Lotrel 10-40 mg Capsule] 1 cap PO HS 10/15/16 [ History] sitaGLIPtin PHOS/metFORMIN HCL [Janumet 50-500 mg Tablet] 1 tab PO DAILY [History] L.acidoph,Paracasei, B.lactis [Probiotic] 1 cap PO DAILY 11/20/16 [History] Vitamin B Complex 1 cap PO DAILY 11/20/16 [History] Acetaminophen/Diphenhydramine [Tylenol PM 500-25mg] 1 tab PO HS PRN 04/04/17 [ History] Apixaban [Eliquis] 5 mg PO BID 05/18/17 [History] Melatonin 5 mg PO HS PRN 05/18/17 [History] Metoprolol Tartrate [Lopressor] 50 mg PO DAILY 05/18/17 [History] Follow up Appointment(s)/Referral(s): Suman Zhang MD [STAFF PHYSICIAN] - 2 Weeks (Hypercoagulopathy workup- office currently closed, please call for appointment. ) Jean Paul Gonzalez MD [Primary Care Provider] - 1 Week (Office closed for lunch, please call for appointment. ) Patient Instructions/Handouts: Ischemic Colitis (DC) Activity/Diet/Wound Care/Special Instructions: Cardiac, diabetic diet. Activity as tolerated. Discharge Disposition: HOME SELF-CARE
== END 2017-05-20 13:58 | disposition home or self-care (01) | DRG 394 ==
LOC: EC 20:23 → 4MS4W 05-19 02:02 → OBSVTOIN 05-19 15:25
PROVIDERS: ADMIT Internal Medicine; ATTEND Internal Medicine
PROC: 0DBN8ZX Excision of Sigmoid Colon, Via Natural or Artificial Opening Endoscopic, Diagnostic (ICD-10-PCS; principal; 2017-05-20 13:40)
DX: K55.9 Vascular disorder of intestine, unspecified (principal); D62 Acute posthemorrhagic anemia; I11.9 Hypertensive heart disease without heart failure; I48.2 Chronic atrial fibrillation; E11.9 Type 2 diabetes mellitus without complications; E55.9 Vitamin D deficiency, unspecified; F32.9 Major depressive disorder, single episode, unspecified; K57.30 Diverticulosis of large intestine without perforation or abscess without bleeding; R19.09 Other intra-abdominal and pelvic swelling, mass and lump; M19.90 Unspecified osteoarthritis, unspecified site; Z79.84 Long term (current) use of oral hypoglycemic drugs; Z87.891 Personal history of nicotine dependence; Z82.49 Family history of ischemic heart disease and other diseases of the circulatory system; Z82.3 Family history of stroke; Z80.0 Family history of malignant neoplasm of digestive organs; Z79.899 Other long term (current) drug therapy; Z79.01 Long term (current) use of anticoagulants; Z92.3 Personal history of irradiation; Z88.0 Allergy status to penicillin; Z90.710 Acquired absence of both cervix and uterus; Z90.49 Acquired absence of other specified parts of digestive tract; Z86.718 Personal history of other venous thrombosis and embolism
CPT/HCPCS: 36415; 45380; 74177; 76856; 80053; 82272; 82378; 82550; 82553; 83605; 83735; 84484; 85025; 85610; 85730; 86304; 86850; 86900; 86901; 87040; 88305; 96361; 96365; 96366; 99285

== ENCOUNTER → 2018-03-25 | Outpatient (CLI) | payer MEDICARE, BC ==
--- NOTE | 2018-03-25 13:30 | XR ---
EXAMINATION TYPE: XR cervical spine comp DATE OF EXAM: 03/25/2018 TECHNIQUE: Frontal, lateral, oblique, swimmers, and open mouth view of the cervical spine are obtaine d. HISTORY: M47.892 Other spondylosis, cervical region COMPARISON: None FINDINGS: The cervical spine is visualized in its entirety from C1 thru the top of T1 level, it is s atisfactory in alignment without evidence of acute fracture or dislocation. There are moderate multi level degenerative changes of the cervical spine displayed is small anterior osteophytes, interverteb ral disc space narrowing, endplate sclerosis, facet arthropathy and uncovertebral hypertrophy. These changes are most pronounced from C4 through C6. There is also straightening of usual cervical lordosi s The pre-vertebral soft tissue appears within normal limits. The C1-C2 articulation is within shiavni l limits on the open mouth view. At least moderate neural foraminal narrowing is seen at C4-C5 and C5 -C6 on the left as well as at C3-C4 and C4-C5 on the right. IMPRESSION: No acute fracture or malalignment is seen in the cervical spine. Moderate multilevel deg enerative changes results in at least moderate bilateral neural canal narrowing that could be more ac curately assessed with MRI.
== END | disposition home or self-care (01) ==
LOC: RADXRMAIN 12:31
PROVIDERS: ATTEND Internal Medicine
DX: M48.02 Spinal stenosis, cervical region (principal); M47.812 Spondylosis without myelopathy or radiculopathy, cervical region
CPT/HCPCS: 72050

== ENCOUNTER → 2018-04-14 | Outpatient (CLI) | payer MEDICARE, BC ==
--- NOTE | 2018-04-14 08:39 | MR ---
MRI CERVICAL SPINE: CLINICAL HISTORY: Cervical region spondylosis per order. Headache with neck pain since January per patie nt. TECHNIQUE: Multiplanar, multisequence imaging of the cervical spine is performed without IV contrast. COMPARISON: Cervical spine x-ray March 25, 2018. FINDINGS: Sagittal images of the cervical spine show the craniocervical junction to appear within nor mal limits. The cervical and upper thoracic spinal cord is normal in course, caliber, and signal. Th ere is slight grade 1 retrolisthesis of C3 on C4 and more prominent grade 1 retrolisthesis of C4 on C 5. The vertebral body heights are normal. There is moderate disc space narrowing C4-C5 and C5-C6 lev els with heterogeneous endplate changes and moderate anterior spurring. Posterior spur disc complexes and disc herniations are effacing anterior thecal sac C3-C4 through C5-C6 level on sagittal images. Axial images at C2-C3 level shows left-sided uncovertebral facet degenerative change but spinal canal is preserved and bilateral neural foramina are patent. Axial images at C3-C4 level show broad-based posterior disc protrusion mildly effacing anterior theca l sac, bilateral neural foramina are patent. Axial images at C4-C5 level show broad-based posterior spur disc complex effacing anterior thecal sac up to ventral surface of spinal cord and causing moderate right and mild left-sided neural foraminal narrowing. Axial images at C5-C6 level show posterior spur disc complex effacing anterior thecal sac nearly up t o ventral surface of spinal cord with uncovertebral facet arthropathy bilaterally causing moderate to advanced bilateral neural foraminal narrowing. Axial images at C6-C7 level show left paracentral/foraminal disc protrusion effacing anterolateral th ecal sac and causing moderate to advanced left-sided neural foraminal narrowing. Right-sided neural f oramen is patent. Axial images at C7-T1 level are felt within normal limits. Left thyroid lobe is smaller in size versus right near axial image 10. IMPRESSION: Multilevel spondylolisthesis and degenerative change with most prominent degenerative fin dings C5-C6 level as detailed above.
== END | disposition home or self-care (01) ==
LOC: RADMRIMAIN 07:20
PROVIDERS: ATTEND Internal Medicine
DX: M43.12 Spondylolisthesis, cervical region (principal); M47.812 Spondylosis without myelopathy or radiculopathy, cervical region
CPT/HCPCS: 72141